=== PATIENT | male | born 1975 | race Caucasian/White ===

== ENCOUNTER → 2020-12-04 15:42 | Outpatient (BNVA) | payer OTHER, SELFPAY | PROVIDERS: PCP Hospitalist; Visit Provider Urology ==

== ENCOUNTER → 2021-11-04 09:06 | Outpatient (BNVA) | payer OTHER, SELFPAY | PROVIDERS: PCP Hospitalist; Visit Provider Urology | DX: N40.1 Benign prostatic hyperplasia with lower urinary tract symptoms (principal); R39.12 Poor urinary stream | CPT/HCPCS: 51798 ==

== ENCOUNTER → 2022-11-03 08:42 | Outpatient (BNVA) | payer OTHER, SELFPAY | PROVIDERS: PCP Hospitalist; Visit Provider Urology | DX: N40.1 Benign prostatic hyperplasia with lower urinary tract symptoms (principal) | CPT/HCPCS: 51798 ==

== ENCOUNTER 2023-11-02 08:36 | Outpatient (AMB) | payer OTHER, SELFPAY ==
--- NOTE | 2023-11-02 08:46 | A.OFFVIS_ITS ---
Intake Intake Visit Reasons: 1Y PVR Intake Note: Patient presents today for a yearly follow up on: BPH w LUTS and PVR Meds- Tamsulosin Allergies to Antibiotic- No Known Allergies Blood Thinner- None Post Void Residual: 82ml Patient Symptoms: Patient voided before bladder scan, and he stated he drinks a lot of fluids. Ethologist Required: No Accompanied by: Self / Same As Patient Allergies No Known Allergies Allergy (Verified 11/02/23 08:55) Medication List - Last Reconciled 11/02/23 by Brian Lewis MD atorvastatin 40 mg PO DAILY blood sugar diagnostic As directed hydrochlorothiazide 12.5 mg PO QAM hydroxyzine HCl 25 mg PO TID lisinopril 30 mg PO DAILY metformin 1,000 mg PO BID semaglutide (Ozempic) mg subcut tamsulosin 0.4 mg PO DAILY 90 days HPI HPI Comments History of Present Illness Details Ventura is a pleasant male. He is a patient of Dr. Duncan. He is seen with the following urologic conditions - lower urinary tract symptoms Continue good effect for medications Continue tamsulosin Discussed possible tadalafil. At this point he is stable. Discussed diabetic management - high density calorie restriction, carb restriction, timed restricted eating Yearly follow-up Lower urinary tract symptoms Prior diagnosis with trapped prostate Primary symptoms weakness of stream Background diabetes with metformin, hydrochlorothiazide, atorvastatin, Ozempic Does well on Flomax Prior discussion of potential for transurethral incision of prostate PSA 10/20 1.8 Prior history kidney stones [facility] Medical History Diabetes mellitus Hyperlipidemia HTN (hypertension) Benign non-nodular prostatic hyperplasia with lower urinary tract symptoms Surgical History History of surgery Review of Systems Const Denies chills and Denies fever(s) Card Reports no additional complaints and Denies syncope Resp Denies cough GI Denies abdominal pain and Denies heartburn Reports as per HPI and Denies change in libido Neuro Denies syncope Psych Denies change in libido Endo Denies change in libido Physical Exam Const General: cooperative, healthy appearing, comfortable and no acute distress Orientation/consciousness: patient oriented x3 HEENT Face and sinus: Yes normal facial exam Mouth: moist mucous membranes Neck Neck: Yes normal visual inspection, Yes full ROM and Yes trachea midline Chest Chest palpation & inspection: normal inspection of the chest Resp Effort & Inspection: normal respiratory effort, able to speak in complete sentences and no respiratory distress GI Inspection: Yes normal to inspection Back/Spine/Pelvis Cervical Spine: normal cervical lordosis Thoracic/Lumbar Spine: thoracic and lumbar spine normal to inspection Skin General skin exam: no rashes or lesions noted Neuro General: patient oriented x3, gait normal, tone normal and moves all extremities Extrem General: Yes normal to inspection and Yes capillary refill normal Office Procedures Post Void Residual Post Residual Void Post Void Residual (PVR): [id number] Void Residual by ultrasound Assessment & Plan Assessment & Plan (1) Benign non-nodular prostatic hyperplasia with lower urinary tract symptoms: Code(s): N40.1 - Benign prostatic hyperplasia with lower urinary tract symptoms Plan Continue tamsulosin Orders: Orders AMB Post Void Residual by ultrasound Today R33.9 - Retention of urine, unspecified Prostate Specific Antigen 364 Days N40.1 - Benign prostatic hyperplasia with lower urinary tract symptoms Medications: Refilled tamsulosin 0.4 mg PO DAILY 90 caps 3RF 90 days N40.1 - Benign prostatic hyperplasia with lower urinary tract symptoms Patient Instructions: Imaging studies, laboratory and physical exam results were discussed and reviewed in detail. No major barriers to patient understanding were identified. An opportunity to ask questions regarding the treatment plan was provided. All questions were answered. The patient expressed understanding and agreement with the above treatment plan. The patient is aware they should contact our office by phone for worsening of their current condition or the appearance of new urologic symptoms. Compliance is encouraged with any medications and followup testing that is ordered. It is a privilege to participate in the urologic care of your patient. If you have any questions or concerns regarding treatment for the above conditions, or other urologic issues, please do not hesitate to contact me. The office telephone contact is [phone]. This note is constructed using voice recognition software. While every effort has been made to ensure accuracy advertising assistant manager errors may have been included. Yours sincerely, Dr Brian Lewis MD, [facility] - Urology Providers of Expert, Compassionate Care for the Genitourinary System Coding Level of Care Code Est Pt Level 4 (36638) Diagnoses Benign non-nodular prostatic hyperplasia with lower urinary tract symptoms N40.1 CPT Codes Post Residual Void - PVR CPT Code: 72271-Tjol Void Residual by ultrasound ([id number])
== END 2023-11-02 09:29 | disposition home or self-care (01) ==
PROVIDERS: Visit Provider Urology
DX: N40.1 Benign prostatic hyperplasia with lower urinary tract symptoms (principal)
CPT/HCPCS: 99213

== ENCOUNTER → 2023-11-02 08:36 | Outpatient (BNVA) | payer OTHER, SELFPAY | PROVIDERS: Visit Provider Urology | DX: N40.1 Benign prostatic hyperplasia with lower urinary tract symptoms (principal); R33.8 Other retention of urine | CPT/HCPCS: 51798 ==

== ENCOUNTER 2024-11-01 08:27 | Outpatient (AMB) | payer OTHER, SELFPAY ==
--- NOTE | 2024-11-01 08:29 | A.OFFVIS_ITS ---
Intake Visit Reasons: 1y/PSA(set)[facility] Intake Note: Patient is present for 1y/psa Urology Medication:tamsulosin Antibiotic Allergy:none Blood Thinner:none Forklift Picker Required: No Allergies No Known Allergies Allergy (Verified 11/01/24 08:31) HPI Comments Details: Ventura is a pleasant male. He is a patient of Dr. Duncan. He is seen with the following urologic conditions - lower urinary tract symptoms Continue good effect for medications Doing well with tamsulosin Given diabetic background recently had testosterone proximally high 300s Recent published data would suggest trial of testosterone booster We will also switch to daily tadalafil Prescription will be provided Has repeat labs in three-month Discussed diabetic management - high density calorie restriction, carb restriction, timed restricted eating Yearly follow-up Lower urinary tract symptoms Prior diagnosis with trapped prostate Primary symptoms weakness of stream Background diabetes with metformin, hydrochlorothiazide, atorvastatin, Ozempic Does well on Flomax Prior discussion of potential for transurethral incision of prostate PSA 10/20 1.8, 10/22 2.2 Prior history kidney stones PFSH Medical History Diabetes mellitus Hyperlipidemia HTN (hypertension) Benign non-nodular prostatic hyperplasia with lower urinary tract symptoms Surgical History History of surgery Review of Systems Const Denies chills and Denies fever(s) Card Reports no additional complaints and Denies syncope Resp Denies cough GI Denies abdominal pain and Denies heartburn Reports as per HPI and Denies change in libido Neuro Denies syncope Psych Denies change in libido Endo Denies change in libido Physical Exam Const General: cooperative, healthy appearing, comfortable and no acute distress Orientation/consciousness: patient oriented x3 HEENT Face and sinus: Yes normal facial exam Mouth: moist mucous membranes Neck Neck: Yes normal visual inspection, Yes full ROM and Yes trachea midline Chest Chest palpation & inspection: normal inspection of the chest Resp Effort & Inspection: normal respiratory effort, able to speak in complete sentences and no respiratory distress GI Inspection: Yes normal to inspection Back/Spine/Pelvis Cervical Spine: normal cervical lordosis Thoracic/Lumbar Spine: thoracic and lumbar spine normal to inspection Skin General skin exam: no rashes or lesions noted Neuro General: patient oriented x3, gait normal, tone normal and moves all extremities Extrem General: Yes normal to inspection and Yes capillary refill normal Assessment & Plan Assessment & Plan (1) Benign non-nodular prostatic hyperplasia with lower urinary tract symptoms: Code(s): N40.1 - Benign prostatic hyperplasia with lower urinary tract symptoms Category: Medical (2) Erectile dysfunction: Code(s): N52.9 - Male erectile dysfunction, unspecified Category: Medical (3) Testosterone insufficiency: Code(s): E34.9 - Endocrine disorder, unspecified Category: Medical Plan Trial SERM Medications: New tadalafil BIN N Group [facility] DR33 [id number] 5 mg PO DAILY 90 days 90 tabs 0RF sexual activity N40.1 - Benign prostatic hyperplasia with lower urinary tract symptoms Patient Instructions: This note is constructed using voice recognition software. While every effort has been made to ensure accuracy scientist errors may have been included. Imaging studies, laboratory and physical exam results were discussed and reviewed in detail. No major barriers to patient understanding were identified. An opportunity to ask questions regarding the treatment plan was provided. All questions were answered. The patient expressed understanding and agreement with the above treatment plan. The patient is aware they should contact our office by phone for worsening of their current condition or the appearance of new urologic symptoms. Compliance is encouraged with any medications and followup testing that is ordered. It is a privilege to participate in the urologic care of your patient. If you have any questions or concerns regarding treatment for the above conditions, or other urologic issues, please do not hesitate to contact me. The office telephone contact is [phone]. Sincerely, Dr Brian Lewis MD, [facility] - Urology Compassionate Specialist Care for the Genitourinary System Coding Level of Care Code Est Pt Level 4 (61532) Diagnoses Benign non-nodular prostatic hyperplasia with lower urinary tract symptoms N40.1 Erectile dysfunction N52.9 Testosterone insufficiency E34.9
--- OUTSIDE RECORDS SUMMARY | 2024-11-01 08:49 | XMS_ITS ---
Author Organization [facility] Address [address] [place] [id number] Care Team Providers Care Hogshead Mat Assembler Name Role Phone MARANDA ALMANZAR Primary Care Provider Allergies No Known Allergies REASON FOR VISIT 6 month f/u Medications Medication SIG (Take, Route, Frequency, Duration) Notes Start Date End Date Status Atorvastatin Calcium 40 MG TAKE 1 TABLET BY MOUTH EVERY DAY for 90 Active hydrOXYzine HCl 25 MG TAKE 1 TABLET BY M OUTH EVERY 8 HOURS NEEDED for 30 Active hydroCHLOROthiazide 12.5 MG TAKE 1 TABLE T BY MOUTH EVERY DAY IN THE MORNING for 90 Active FreeStyle Lite Test - DIRECTED TO MELISSA CK BLOOD SUGARS DX: E11.9 ONCE DAILY IN VITRO 30 DAYS Active FreeStyle Lancets - as directed to check blood sugars with freestyle lite device Dx: E11.9 in vitro once daily for 30 days 01/09/2020 Active Tamsulosin HCl 0.4 MG 1 capsule Orally O nce a day for 30 day(s) Active Cialis 10 MG 1 tablet as needed Orally Once a day for 30 day(s) Active Ozempic (0.25 or 0.5 MG/DOSE ) 2 MG/1.5ML 1 mg Subcutaneous once a week for 30 days 11/04/2022 Active FreeStyle Lite - as directed to check blood sugars Dx: E11.9 in vitro once daily for 30 days 01/09/2020 Active Ozempic (0.25 or 0.5 MG/DOSE ) 2 MG/3ML INJECT 0.5 MG SUBCUTANEOUSLY ONCE A WEEK for 56 Active Lisinopril 30 MG TAKE 1 TABLET BY GERALD TH EVERY DAY for 90 Active metFORMIN HCl 1000 MG TAKE 1 TABLET BY M OUTH TWICE A DAY WITH MEALS 90 DAYS for 90 Active Social History Tobacco Use: Social History Observation Description Date Details (start date - stop date) Never Smoker NA - NA Tobacco Use/Smoking Question Answer Notes Are you a nonsmoker Alcohol Screen (Audit-C) Question Answer Notes Did you have a drink containing alcohol in the p ast year? No Points 0 Interpretation Negative Section Notes: Alcohol Ocassionally Problems Problem Type SNOMED Code ICD Code Onset Dates Problem Status W/U Status Risk Notes Problem Obesity due to excess calories (869308644) Other obesity due to excess calories (E66.09) Active confirmed Vital Signs Temperature 98.7 degrees Fahrenheit 07/04/20 24 Oximetry 98 % 07/04/2024 Heart Rate 96 /min 07/04/2024 Blood pressure systolic 138 mm Hg 07/04/20 24 Blood pressure diastolic 80 mm Hg 024 Weight 210.0 lbs 07/04/2024 BMI 30.57 kg/m2 07/04/2024 Height 69.49 in 07/04/2024 Encounters Encounter Location Date Provider Diagnosis [facility] [address] [id number] 07/04/2024 MARANDA ALMANZAR Type 2 diabetes mellitus with unspecified complications E11.8 ; Essential (primary) hypertension I10 ; Hyperlipidemia, unspecified E78.5 ; Benign prostatic hyperplasia without lower urinary tract symptoms N40.0 ; Decreased libido R68.82 ; Other obesity due to excess calories E66.09 and Dietary counseling and surveillance Z71.3 Assessments Encounter Date Diagnosis (ICD Code) Assessment Notes Treatment Notes Treatment Clinical Notes Section Notes 07/04/2024 Type 2 diabetes mellitus with unspecified complications (ICD-10 - E11.8) Ventura 48 years old pleasant gentleman with DM type II, hypertension, hyperlipidemia, BPH, erectile dysfunction and he also complained of decreased libido. Plan is as follows. DM type II. A1c 6.3 but fasting blood sugars are 166. Advised not to eat late at night and this can be Charity phenomenon. We will increase his Ozempic to 1 mg every weekly and continue rest of the medications. 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 He is physically active and foot care discussed. Hypertension/hyper lipidemia. Blood pressure on repeat well controlled. Low-sodium diet recommended. Continue atorvastatin 40 mg daily and repeat lipid panel before next appointment .Erectile dysfunction and decreased libido. Continue Cialis and we will check testosterone levels and will proceed from there. class I obesity. Dietary restrictions discussed with the patient and was advised to lose 6 pounds a month. Increasing the dose of GLP 1 will also help with weight loss. Screening blood work ordered 07/04/2024 Essential (primary) hypertension (ICD-10 - I10) Ventura 48 years old pleasant gentleman with DM type II, hypertension, hyperlipidemia, BPH, erectile dysfunction and he also complained of decreased libido. Plan is as follows. DM type II. A1c 6.3 but fasting blood sugars are 166. Advised not to eat late at night and this can be Charity phenomenon. We will increase his Ozempic to 1 mg every weekly and continue rest of the medications. 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 He is physically active and foot care discussed. Hypertension/hyper lipidemia. Blood pressure on repeat well controlled. Low-sodium diet recommended. Continue atorvastatin 40 mg daily and repeat lipid panel before next appointment .Erectile dysfunction and decreased libido. Continue Cialis and we will check testosterone levels and will proceed from there. class I obesity. Dietary restrictions discussed with the patient and was advised to lose 6 pounds a month. Increasing the dose of GLP 1 will also help with weight loss. Screening blood work ordered 07/04/2024 Hyperlipidemia, unspecified (ICD-10 - E78.5) Ventura 48 years old bala gentleman with DM type II, hypertension, hyperlipidemia, BPH, erectile dysfunction and he also complained of decreased libido. Plan is as follows. DM type II. A1c 6.3 but fasting blood sugars are 166. Advised not to eat late at night and this can be Charity phenomenon. We will increase his Ozempic to 1 mg every weekly and continue rest of the medications. 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 He is physically active and foot care discussed. Hypertension/hyper lipidemia. Blood pressure on repeat well controlled. Low-sodium diet recommended. Continue atorvastatin 40 mg daily and repeat lipid panel before next appointment .Erectile dysfunction and decreased libido. Continue Cialis and we will check testosterone levels and will proceed from there. class I obesity. Dietary restrictions discussed with the patient and was advised to lose 6 pounds a month. Increasing the dose of GLP 1 will also help with weight loss. Screening blood work ordered 07/04/2024 Benign prostatic hyperplasia without lower urinary tract symptoms (ICD-10 - N40.0) Ventura 48 years old pleasant gentleman with DM type II, hypertension, hyperlipidemia, BPH, erectile dysfunction and he also complained of decreased libido. Plan is as follows. DM type II. A1c 6.3 but fasting blood sugars are 166. Advised not to eat late at night and this can be Charity phenomenon. We will increase his Ozempic to 1 mg every weekly and continue rest of the medications. 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 He is physically active and foot care discussed. Hypertension/hyper lipidemia. Blood pressure on repeat well controlled. Low-sodium diet recommended. Continue atorvastatin 40 mg daily and repeat lipid panel before next appointment .Erectile dysfunction and decreased libido. Continue Cialis and we will check testosterone levels and will proceed from there. class I obesity. Dietary restrictions discussed with the patient and was advised to lose 6 pounds a month. Increasing the dose of GLP 1 will also help with weight loss. Screening blood work ordered 07/04/2024 Decreased libido (ICD-10 - R68.82) Ventura 48 years old bala gentleman with DM type II, hypertension, hyperlipidemia, BPH, erectile dysfunction and he also complained of decreased libido. Plan is as follows. DM type II. A1c 6.3 but fasting blood sugars are 166. Advised not to eat late at night and this can be Charity phenomenon. We will increase his Ozempic to 1 mg every weekly and continue rest of the medications. 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 He is physically active and foot care discussed. Hypertension/hyper lipidemia. Blood pressure on repeat well controlled. Low-sodium diet recommended. Continue atorvastatin 40 mg daily and repeat lipid panel before next appointment .Erectile dysfunction and decreased libido. Continue Cialis and we will check testosterone levels and will proceed from there. class I obesity. Dietary restrictions discussed with the patient and was advised to lose 6 pounds a month. Increasing the dose of GLP 1 will also help with weight loss. Screening blood work ordered 07/04/2024 Other obesity due to excess calories (ICD-10 - E66.09) Ventura 48 years old bala gentleman with DM type II, hypertension, hyperlipidemia, BPH, erectile dysfunction and he also complained of decreased libido. Plan is as follows. DM type II. A1c 6.3 but fasting blood sugars are 166. Advised not to eat late at night and this can be Charity phenomenon. We will increase his Ozempic to 1 mg every weekly and continue rest of the medications. 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 He is physically active and foot care discussed. Hypertension/hyper lipidemia. Blood pressure on repeat well controlled. Low-sodium diet recommended. Continue atorvastatin 40 mg daily and repeat lipid panel before next appointment .Erectile dysfunction and decreased libido. Continue Cialis and we will check testosterone levels and will proceed from there. class I obesity. Dietary restrictions discussed with the patient and was advised to lose 6 pounds a month. Increasing the dose of GLP 1 will also help with weight loss. Screening blood work ordered 07/04/2024 Dietary counseling and surveillance (ICD-10 - Z71.3) Ventura 48 years old pleasant gentleman with DM type II, hypertension, hyperlipidemia, BPH, erectile dysfunction and he also complained of decreased libido. Plan is as follows. DM type II. A1c 6.3 but fasting blood sugars are 166. Advised not to eat late at night and this can be Charity phenomenon. We will increase his Ozempic to 1 mg every weekly and continue rest of the medications. 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 He is physically active and foot care discussed. Hypertension/hyper lipidemia. Blood pressure on repeat well controlled. Low-sodium diet recommended. Continue atorvastatin 40 mg daily and repeat lipid panel before next appointment .Erectile dysfunction and decreased libido. Continue Cialis and we will check testosterone levels and will proceed from there. class I obesity. Dietary restrictions discussed with the patient and was advised to lose 6 pounds a month. Increasing the dose of GLP 1 will also help with weight loss. Screening blood work ordered Plan Of Treatment Medication Medication Name Sig Start Date Stop Date Notes Ozempic (0.25 or 0.5 MG/DOSE) 2 MG/1.5ML 1 mg Subcutaneous once a week for 30 days 11/04/2022 Future Test Test Name Order Date Hemoglobin D0s-[id number] 07/04/2024 Testosterone, Free+Total LC/MS-[id number] Albumin/Creatinine Ratio,Urine-[id number] Lipid Panel-[id number] 07/04/2024 Comp. Metabolic Panel [id number] PSA (Serial Monitor)-[id number] 07/04/2024 Next Appt Details Follow Up: 6 Months, Reason: Provider Name:MARANDA ALMANZAR , 12/05/2024 10:00:00 AM, [address] [place] [address], [place], [phone], Progress Notes * Ventura LOWEDOB: [birth year] (48 yo M)Acc No.[id number]:07/04/2024 Progress Notes Patient:?Ventura LOWE Provider:?MARANDA ALMANZAR MD :[id number]???Age:48 Y???Sex:Male Juanito e:07/04/2024 Address:[address] [place], [place] [id number] Subjective: * Chief Complaints: * ???6 month f/u * HPI: ???Internal Medicine:?Mr. Lowe is a 47 year old gentleman with DM type II, hypertension, hyperlipidemia, BPH, CKD and white coat hypertension here for follow-up. His hemoglobin A1c is 6.6 which went up and fasting blood sugars 166. Vision and hearing are stable. He checks his blood sugars and blood pressure at home which are pretty much within normal limits. He is physically active and exercising regularly. He lost 22 lbs since last visit. He does not appear anxious or depressed. He sleeps well, appetite is good. No GI or symptoms. He denies any other active issues or concerns. * ROS:?General/Constitutional:?Overall health?Good.?Change in appetite?denies.?Chills?denies.?Fever?denies.?Night sweats?denies.?Sleep disturbance?denies.?Weight gain?denies.?Weight loss?admits, 22?pounds.?Neurologic:?Difficulty speaking?denies.?Dizziness?denies.?Gait abnormality?denies.?Headache?denies.?Loss of strength?denies.?Memory loss?denies.?Seizures?denies.?Tingling/Numbness?denies .?Ophthalmologic:?Blurred vision?denies.?Discharge?denies.?Dry eye?denies.?Red eye?denies.?ENT:?Change in Voice?Denies.?Cold Symptoms?Denies.?Cough?Denies.?Dizziness?Denies.?Nasal Congestion?Denies.?Otalgia?Denies.?postnasal drip?Denies.?Blocked ear?denies.?Nosebleed?denies.?Snoring?denies.?Cardiovascular:?Diaphoresis?Denies.?Pedal Edema?Denies.?PND (Paroxsymal nocturnal dyspnea)?Denies.?Chest pain?denies.?Difficulty laying flat?denies.?Dyspnea on exertion?denies.?Heart murmur?denies.?Orthopnea?denies.?Respiratory:?Snoring?denies.?Asthma?denies.?Cough?denies.?Shortness of breath with exertion?denies.?Sputum production?denies.?Wheezing?denies.?Gastrointestinal:?Change in bowel habits?denies.?Constipation?denies.?Decreased appetite?denies.?Diarrhea?denies.?Heartburn?denies.?Nausea?denies.?Vomiting?simone es.?Musculoskeletal:?tingling/numbness?Denies.?myalgias?Denies.?Joint Swelling?Denies.?extremeties?normal.?Patient complaining of?pain in shoulder.?Arthritis?denies.?Back problems?admits.?Carpal tunnel?denies.?Joint stiffness?denies.?Muscle aches?denies.?Endocrine:?Bowel Changes?Denies.?Breast Discharge?Denies.?poor libido?Denies.?Cold intolerance?denies.?Excessive sweating?denies.?Excessive thirst?denies.?Frequent urination?denies.?Thyroid problems?denies.?Skin:?Bruising?Denies.?Eczema?denies.?Hair changes?denies.?Rash?denies.?Skin lesion(s)?denies.?Psychiatric:?Anxiety?denies.?Depressed mood?denies.?Difficulty sleeping?denies.?Nervous breakdown?denies.?Substance abuse?denies.?Urology:?abnormal menstrual bleeding?denies.?blood in urine?denies.?burning on urination?denies.?difficulty urinating?denies.?discharge?denies.?dysuria?denies.? * Medical History:? * Surgical History:?kidney sto natalie * Hospitalization/Major Diagno stic Procedure:? * Family History:?Father: elisa yu.?Mother: .?1 brother(s) . .? * Social History:?Tobacco Use:?Tobacco Use/Smoking?Are you a?nonsmoker ???Drugs/Alcohol:?Drugs?Have you used drugs other than those for medical reasons in the past 12 months??No ?Alcohol Screen (Audit-C)?Did you have a drink containing alcohol in the past year??No ?Points?0 ?Interpretation?Negative ???Miscellaneous:?Exercise: Started exercising. ?Living with: alone. ?Marital status: . ?Occupation: Works full-time. ???Alcohol Ocassionally. * Medications:?TakingTamsulosi n HCl 0.4 MG Capsule 1 capsule Orally Once a day FreeStyle Lite - Device as directed to check blood sugars Dx: E11.9 in vitro once daily FreeStyle Lancets - Miscellaneous as directed to check blood sugars with freestyle lite device Dx: E11.9 in vitro once daily FreeStyle Lite Test - Strip DIRECTED TO CHECK BLOOD SUGARS DX: E11.9 ONCE DAILY IN VITRO 30 DAYS Ozempic (0.25 or 0.5 MG/DOSE) 2 MG/1.5ML Solution Pen-injector 0.25 mg Subcutaneous once a week hydroCHLOROthiazide 12.5 MG Tablet TAKE 1 TABLET BY MOUTH EVERY DAY IN THE MORNING hydrOXYzine HCl 25 MG Tablet TAKE 1 TABLET BY MOUTH EVERY 8 HOURS NEEDED Atorvastatin Calcium 40 MG Tablet TAKE 1 TABLET BY MOUTH EVERY DAY metFORMIN HCl 1000 MG Tablet TAKE 1 TABLET BY MOUTH TWICE A DAY WITH MEALS 90 DAYS Lisinopril 30 MG Tablet TAKE 1 TABLET BY MOUTH EVERY DAY Cialis 10 MG Tablet 1 tablet as needed Orally Once a day Ozempic (0.25 or 0.5 MG/DOSE) 2 MG/3ML Solution Pen-injector INJECT 0.5 MG SUBCUTANEOUSLY ONCE A WEEK Medication List reviewed and reconciled with the patientTaking Tamsulosin HCl 0.4 MG Capsule 1 capsule Orally Once a day Taking FreeStyle Lite - Device as directed to check blood sugars Dx: E11.9 in vitro once daily Taking FreeStyle Lancets - Miscellaneous as directed to check blood sugars with freestyle lite device Dx: E11.9 in vitro once daily Taking FreeStyle Lite Test - Strip DIRECTED TO CHECK BLOOD SUGARS DX: E11.9 ONCE DAILY IN VITRO 30 DAYS Taking Ozempic (0.25 or 0.5 MG/DOSE) 2 MG/1.5ML Solution Pen-injector 0.25 mg Subcutaneous once a week Taking hydroCHLOROthiazide 12.5 MG Tablet TAKE 1 TABLET BY MOUTH EVERY DAY IN THE MORNING Taking hydrOXYzine HCl 25 MG Tablet TAKE 1 TABLET BY MOUTH EVERY 8 HOURS NEEDED Taking Atorvastatin Calcium 40 MG Tablet TAKE 1 TABLET BY MOUTH EVERY DAY Taking metFORMIN HCl 1000 MG Tablet TAKE 1 TABLET BY MOUTH TWICE A DAY WITH MEALS 90 DAYS Taking Lisinopril 30 MG Tablet TAKE 1 TABLET BY MOUTH EVERY DAY Taking Cialis 10 MG Tablet 1 tablet as needed Orally Once a day Taking Ozempic (0.25 or 0.5 MG/DOSE) 2 MG/3ML Solution Pen-injector INJECT 0.5 MG SUBCUTANEOUSLY ONCE A WEEK Medication List reviewed and reconciled with the patient * Allergies:?N.K.D.A.no[Allerg ies Verified] Objective: * Vitals:?Temp:98.7F, Oxygen s at %:98%, HR:96/min, BP: 156/82 mm Hg,138/80mm Hg, Wt:210.0lbs, BMI:30.57Index, Ht: 69.49 in. * ???Past Orders: Lab:Hemoglobin [id number] * Collection Date 06/29/2024 01/05/2024 Collection Time 07:09 AM 06:10 AM Order Date 06/04/2024 01/05/2024 Hemoglobin A1c/ Hemoglobin total 6.6? H (Ref Range: 4.8-5.6 %) 6.3?H (Ref Range: 4.8-5.6 %) ???Lab:Basic Metabolic Panel ([id number] (Order Date - 06/04/2024) (Collection Date & Time - 06/29/2024 07:09 AM)?ValueReference Range?[id number] H70-99 - mg/dL?WZL697-50 - mg/dL?Creatinine1.160.76-1.27 - mg/dL ?BUN/Creatinine Gneit239-06 -?[id number] - mmol/L ?Potassium4.83.5-5.2 - mmol/L?Fmwdwcjj42857-023 - mmol/L ?Carbon Dioxide, Vbbtq9572-06 - mmol/L?Calcium9.68.7-10.2 - mg/dL ?eGFR77>59 - mL/min/1.73 ???Lab:Glucose-[id number] (Order Date - 01/05/2024) (Collection Date & Time - 01/05/2024 06:10 AM)?ValueReference Range?[id number] - mg/dL * Examination: ???General Examination: ?Psychiatry?Normal.?GENERAL APPEARANCE:?Well developed, well nourished, in no acute distress.?MUSCULOSKELETAL:?Normal.?HEAD:?Normocephalic, atraumatic.?EYES:?Pupils equal, round, reactive to light and accommodation, sclera non-icteric.?EARS:?Normal.?ORAL CAVITY:?Normal.?THROAT:?Clear.?OROPHARYNX?Normal.?SINUSES?Normal.?NECK/THYROID:?Neck supple, full range of motion, no cervical lymphadenopathy.?SKIN:?Warm and dry, no suspicious lesions.?HEART:?S1, S2 normal regular rate and rhythm no murmurs, rubs, gallops .?LUNGS:?Normal clear anteriorly and posteriorly no wheezes, rales, rhonchi good air movement .?ABDOMEN:?Soft, nontender, nondistended, bowel sounds present, normal.?EXTREMITIES:?Normal.?PERIPHERAL PULSES:?Normal.?NEUROLOGIC:?Nonfocal, appropriate motor strength normal upper and lower extremities, sensory exam intact.?MALE GENITOURINARY:?no hernia, no hydrocele, no penile lesions or discharge, no testicular mass, prostate very mildly enlarged.?PODIATRIC:?Normal.?Transformer Builder? .? Assessment: * Assessment: 1.?Type 2 diabetes mellitus with unspecified complications - E11.8 (Primary)???2.?Essential (primary) hypertension - I10???3.?Hyperlipidemia, unspecified - E78.5???4.?Benign prostatic hyperplasia without lower urinary tract symptoms - N40.0???5.?Decreased libido - R68.82???6.?Other obesity due to excess calories - E66.09???7.?Dietary counseling and surveillance - Z71.3??? Ventura 48 years old pleasan t gentleman with DM type II, hypertension, hyperlipidemia, BPH, erectile dysfunction and he also complained of decreased libido.? Plan is as follows. DM type II.? A1c 6.3 but fasting blood sugars are 166.? Advised not to eat late at night and this can be Charity phenomenon.? We will increase his Ozempic to 1 mg every weekly and continue rest of the medications.? 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 He is physically active and foot care discussed. Hypertension/hyperlipidemia.? Blood pressure on repeat well controlled.? Low- sodium diet recommended.? Continue atorvastatin 40 mg daily and repeat lipid panel before next appointment .Erectile dysfunction and decreased libido.? Continue Cialis and we will check testosterone levels and will proceed from there. class I obesity.? Dietary restrictions discussed with the patient and was advised to lose 6 pounds a month.? Increasing the dose of GLP 1 will also help with weight loss. Screening blood work ordered Plan: * Treatment: 2.?Benign prostatic hyperpla geoff without lower urinary tract symptoms?LAB: PSA (Serial Monitor)-[id number] (Ordered for 07/04/2024) 3.?Decreased libido?LAB: Testosterone, Free+Total LC/MS-[id number] (Ordered for 07/04/2024) 4.?Others? Refill Ozempic (0.25 or 0.5 MG/DOSE) Solution Pen-injector, 2 MG/1.5ML, 1 mg, Subcutaneous, once a week, 30 days, 6 ml, Refills 6.?? * Procedure Codes:?3075F SYST BP GE 130 - 139MM [id number] DIAST BP 80-89 MM [id number] SYST BP = 140 MM HG6 IT * Follow Up:?6 Months * * Sign off status: Completed true * Provider:?MARANDA ALMANZAR MD Date:?07/04 Generated for Sun johnson/Rocco/eTkeelysmitting on:?11/01/2024 08:48 AM EDT History and Physical Notes * HPI (History of Present Illness) Category Sub-Category Detail Notes Category Not es Internal Medicine Mr. Hattie narvaez is a 47 year old gentleman with DM type II, hypertension, hyperlipidemia, BPH, CKD and white coat hypertension here for follow-up. His hemoglobin A1c is 6.6 which went up and fasting blood sugars 166. Vision and hearing are stable. He checks his blood sugars and blood pressure at home which are pretty much within normal limits. He is physically active and exercising regularly. He lost 22 lbs since last visit. He does not appear anxious or depressed. He sleeps well, appetite is good. No GI or symptoms. He denies any other active issues or concerns. Examination Category Sub-Category Detail Notes Category Not es General Examination GENERAL APPEARANCE: Well dev eloped, well nourished, in no acute distress HEAD: Normocephalic, atrau matic EYES: Pupils equal, round, reactive to light and accommodation, sclera non-icteric EARS: Normal THROAT: Clear NECK/THYROID: Neck supple, full ra nge of motion, no cervical lymphadenopathy HEART: S1, S2 normal regula r rate and rhythm no murmurs, rubs, gallops LUNGS: Normal clear anterio rly and posteriorly no wheezes, rales, rhonchi good air movement ABDOMEN: Soft, nontender, non distended, bowel sounds present, normal NEUROLOGIC: Nonfocal, appropriat e motor strength normal upper and lower extremities, sensory exam intact SKIN: Warm and dry, no miguel picious lesions EXTREMITIES: Normal PERIPHERAL PULSES: Normal MUSCULOSKELETAL: Normal MALE GENITOURINARY: no hernia, no hydroc roger, no penile lesions or discharge, no testicular mass, prostate very mildly enlarged ORAL CAVITY: Normal PODIATRIC: Normal Psychiatry Normal OROPHARYNX Normal SINUSES Normal Transformer Builder
--- OUTSIDE RECORDS SUMMARY | 2024-11-01 08:49 | XMS_ITS | Patient Health Record ---
Author Organization [facility] Address [address] [place] [address] [address] [place] [address] Care Team Providers Care [place] Superintendent Name Role Phone MARANDA ALMANZAR Primary Care Provider Allergies No Known Allergies Results Component Value Reference Range Notes Basic Metabolic Panel ([id number] Reviewed date:06/30/2024 09:43:02 AM Interpretation: Performing Lab:[facility], [address] [place] [address], Phone - [phone], Director - Kim Notes/Report: Glucose 166 70-99 mg/dL BUN 18 6-24 mg/dL Creatinine 1.16 0.76-1.27 mg/dL eGFR 77 >59 mL/min/1.73 BUN/Creatinine Ratio 16 9-20 Sodium 138 134-144 mmol/L Potassium 4.8 3.5-5.2 mmol/L Chloride 100 96-106 mmol/L Carbon Dioxide, Total 24 20-29 mmol/L Calcium 9.6 8.7-10.2 mg/dL Hemoglobin [id number] Reviewed date:06/30/2024 09:42:53 AM Interpretation: Performing Lab:[facility], [address] [facility], Phone - [phone], Director - Kim Notes/Report: Hemoglobin A1c 6.6 4.8-5.6 % . Prediabetes: 5.7 - 6.4 Diabetes: >6.4 Glycemic control for adults with diabetes: <7.0 Testosterone, Total, LC/MS-0 [id number] Reviewed date:01/12/2024 07:53:54 AM Interpretation: Performing Lab:[facility], [address] [place] [address], Phone - [phone], Director - Eladio Notes/Report: Testosterone, Total, LC/MS 400 This test was developed and its performance characteristics determined by [facility]. It has not been cleared or approved by the Food and Drug Administration. Reference Range: Adult Males >18 years 264 - 916 This [facility] LC/MS-MS method is currently certified by the CDC Hormone Standardization Program (HoST). Adult male reference interval is based on a population of healthy nonobese males (BMI <30) between 19 and 39 years old. Girma et.al. JCEM 2017,102;3729-2411 PMID: [id number]. Chiquita Girard LP Default Reviewed date:01/07/2024 09:12:58 AM Interpretation: Performing Lab:[facility] [address] [place] [address], [place], Phone - [phone], Director Bibi Alvarez Notes/Report: Chiquita Girard LP Default A hand-written panel/profile was received from your office. In accordance with the [facility] Ambiguous Test Code Policy dated January 2003, we have completed your order by using the closest currently or formerly recognized AMA panel. We have assigned Lipid Panel, Test Code #343155 to this request. If this is not the testing you wished to receive on this specimen, please contact the [facility] Client Inquiry/Technical Services Department to clarify the test order. We appreciate your business. Lipid Panel-[id number] Reviewed date:01/07/2024 09:14:43 AM Interpretation: Performing Lab:[facility] [address] [place] [address], [place], Phone - [phone], Director Bibi Alvarez Notes/Report: Cholesterol, Total 118 100-199 mg/dL Triglycerides 81 0-149 mg/dL HDL Cholesterol 38 >39 mg/dL VLDL Cholesterol Tushar 16 5-40 mg/dL LDL Chol Calc (NIH) 64 0-99 mg/dL Hemoglobin [id number] Reviewed date:01/07/2024 09:14:52 AM Interpretation: Performing Lab:[facility] [place], [place], Phone - [phone], Director Bibi Alvarez Notes/Report: Hemoglobin A1c 6.3 4.8-5.6 % . Prediabetes: 5.7 - 6.4 Diabetes: >6.4 Glycemic control for adults with diabetes: <7.0 Glucose-[id number] Reviewed date:01/07/2024 09:14:49 AM Interpretation: Performing Lab:[facility], [address], [place], Phone - [phone], Director - Kim Notes/Report: Glucose 134 70-99 mg/dL Reason For Referral No Information Medications Medication SIG (Take, Route, Frequency, Duration) Notes Start Date End Date Status hydroCHLOROthiazide 12.5 MG 1 capsule in the morning Orally Once a day for 90 days Active Ozempic (1 MG/DOSE) 4 MG/3ML INJECT 1 MG SUBCUTANEOUS ONCE WEEKLY 30 DAYS for 30 Active Cialis 10 MG 1 tablet Orally Once a day for 30 days Active metFORMIN HCl 1000 MG TAKE 1 TABLET BY M OUTH TWICE A DAY WITH MEALS 90 DAYS for 90 Active FreeStyle Lite Test - DIRECTED TO MELISSA CK BLOOD SUGARS DX: E11.9 ONCE DAILY IN VITRO 30 DAYS Active Ozempic (0.25 or 0.5 MG/DOSE ) 2 MG/1.5ML 1 mg Subcutaneous once a week for 30 days 11/04/2022 Active FreeStyle Lancets - as directed to check blood sugars with freestyle lite device Dx: E11.9 in vitro once daily for 30 days 01/09/2020 Active FreeStyle Lite - as directed to check blood sugars Dx: E11.9 in vitro once daily for 30 days 01/09/2020 Active Ozempic (0.25 or 0.5 MG/DOSE ) 2 MG/3ML INJECT 0.5 MG SUBCUTANEOUSLY ONCE A WEEK for 56 Active Tamsulosin HCl 0.4 MG 1 capsule Orally O nce a day for 30 day(s) Active Lisinopril 30 MG TAKE 1 TABLET BY GERALD TH EVERY DAY for 90 Active Atorvastatin Calcium 40 MG TAKE 1 TABLET BY MOUTH EVERY DAY for 90 Active hydrOXYzine HCl 25 MG 1 tablet Orally ev yung 8 hrs for 30 days Active Immunizations Vaccine Route Administration Date Status Comme nts COVID Moderna Unknown 10/16/2020 Administered COVID Moderna Unknown 11/13/2020 Administered COVID Moderna Unknown 11/03/2021 Administered COVID-19 Moderna Unknown 06/08/2022 Administered Influenza, high dose seasonal IM Intramuscular 04/17/2020 Administered Td (adult), absorbed Unknown 02/28/2020 Administered Social History Tobacco Use: Social History Observation Description Date Details (start date - stop date) Never Smoker NA - NA Tobacco Use/Smoking Question Answer Notes Are you a nonsmoker Alcohol Screen (Audit-C) Question Answer Notes Did you have a drink containing alcohol in the p ast year? No Points 0 Interpretation Negative Section Notes: Alcohol Ocassionally Alcohol Ocassionally Alcohol Ocassionally Alcohol Ocassionally Alcohol Ocassionally Alcohol Ocassionally Alcohol Ocassionally Alcohol Ocassionally Problems Problem Type SNOMED Code ICD Code Onset Dates Problem Status W/U Status Risk Notes Problem Disorder due to type 2 diabetes mellitus (409110731) Type 2 diabetes mellitus with unspecified complications (E11.8) Active confirmed Problem Type II diabetes mellitus without complication (328901936) Type 2 diabetes mellitus without complications (E11.9) Active confirmed Problem Obesity due to excess calories (815882155) Other obesity due to excess calories (E66.09) Active confirmed Problem Anxiety disorder (840741340) Anxiety disorder, unspecified (F41.9) Active confirmed Problem Fatty liver (174356889) Fatty (change of) liver, not elsewhere classified (K76.0) Active confirmed Problem Chronic kidney disease (364326383) Chronic kidney disease, unspecified (N18.9) Active confirmed Problem Erectile dysfunction (disorder) (801300466) Male erectile dysfunction, unspecified (N52.9) Active confirmed Problem Adult health examination (584904509) Encounter for general adult medical examination without abnormal findings (Z00.00) Active confirmed Problem Hyperlipidemia (76551583) Hyperlipidemia, unspecified (E78.5) Active confirmed Problem Essential hypertension (76499233) Essential (primary) hypertension (I10) Active confirmed Problem Benign prostatic hypertrophy without outflow obstruction (794484123) Benign prostatic hyperplasia without lower urinary tract symptoms (N40.0) Active confirmed Vital Signs Heart Rate 96 /min 07/04/2024 Temperature 98.7 degrees Fahrenheit 07/04/2024 Blood pressure diastolic 80 mm Hg 07/04/2024 Oximetry 98 % 07/04/2024 Height 69.49 in 07/04/2024 Blood pressure systolic 138 mm Hg 07/04/2024 Weight 210.0 lbs 07/04/2024 BMI 30.57 kg/m2 07/04/2024 Encounters Encounter Location Date Provider Diagnosis [facility] [address] [address] 12/04/2023 MARANDA ALMANZAR Type 2 diabetes anirudh itus with unspecified complications E11.8 ; Encounter for general adult medical examination without abnormal findings Z00.00 ; Essential (primary) hypertension I10 ; Hyperlipidemia, unspecified E78.5 ; Anxiety disorder, unspecified F41.9 and Benign prostatic hyperplasia without lower urinary tract symptoms N40.[address] [place] [address] 07/04/2024 MARANDA ALMANZAR Type 2 diabetes anirudh itus with unspecified complications E11.8 ; Essential (primary) hypertension I10 ; Hyperlipidemia, unspecified E78.5 ; Benign prostatic hyperplasia without lower urinary tract symptoms N40.0 ; Decreased libido R68.82 ; Other obesity due to excess calories E66.09 and Dietary counseling and surveillance Z71.[address] [place] [address] 12/05/2023 MARANDA ALMANZAR Encounter for genera l adult medical examination without abnormal findings Z00.[address] [place] [address] 02/23/[address] [place] [address] 04/11/2024 MARANDA ALMANZAR Male erectile dysfunction, unspecified N52.[address] [place] [address] 04/17/2024 MARANDA ROBB Male erectile dysfunction, unspecified N52.[address] [place] [address] 04/24/[address] [place] [address] 04/24/[address] [place] [address] 06/03/[address] [place] [address] 06/04/2024 MARANDA ALMANZAR Type 2 diabetes anirudh itus without complications E11.9 and Essential (primary) hypertension I10 [facility] [address] [facility] [address] [place] [address] 07/09/2024 MARANDA ALMANZAR Assessments Encounter Date Diagnosis (ICD Code) Assessment Notes Treatment Notes Treatment Clinical Notes Section Notes 12/04/2023 Type 2 diabetes mellitus with unspecified complications (ICD-10 - E11.8) Mr. Lowe is a 47 year old gentleman with DM type II, hypertension, hyperlipidemia, BPH, CKD and white coat hypertension here for annual physical. Plan is as follows: Type II diabetes mellitus. Last A1c 6.6. He is on metformin 1000 MG twice a day. He will benefit from injectables at this point and prescription sent for Ozempic. He has seen his service observer in the past 1 year. Foot care discussed. Check A1c. EKG is NSR @ [address] or T wave changes, no BBB and normal intervals Hypertension. Blood pressure reasonably controlled. He has whitecoat hypertension and home BP within normal limits. Increase cardio exercises. Continue current regimen. Hyperlipidemia. Last lipid panel within normal limits. Continue on Atorvastatin 40 MG at night. Anxiety disorder. Mood stable on hydroxyzine 25 MG as needed. BPH. Stable on current regimen and he sees Dr. Camara. Class 1 obesity. He will start on Ozempic which also helps with weight loss. Advised dietary restrictions and regimental exercise. Goal is to lose 5-6 lbs a month. Eye screening. He sees his service observer regularly. Dental screening. He sees dentist regularly. Skin cancer screening. No skin issues at this point. Colon cancer screening. He had a cologuard last year which is good for 3 years. Immunizations. He is up-to-date on his COVID-19 vaccinations. Blood work reviewed with patient and questions answered. Screening blood work before next appointment. General health concerns discussed with patient. Scribe services used to formulate this note under HIPAA compliance and under [place] law mandated for scribe services. Patient aware of service. Verbal consent and written consent taken from the patient. Patient understands and verbalizes understanding of the scribes services and all questions answered regarding scribes services. Patient agrees to use of scribes services. 12/04/2023 Encounter for general adult medical examination without abnormal findings (ICD-10 - Z00.00) Mr. Lowe is a 47 year old gentleman with DM type II, hypertension, hyperlipidemia, BPH, CKD and white coat hypertension here for annual physical. Plan is as follows: Type II diabetes mellitus. Last A1c 6.6. He is on metformin 1000 MG twice a day. He will benefit from injectables at this point and prescription sent for Ozempic. He has seen his service observer in the past 1 year. Foot care discussed. Check A1c. EKG is NSR @ [address] or T wave changes, no BBB and normal intervals Hypertension. Blood pressure reasonably controlled. He has whitecoat hypertension and home BP within normal limits. Increase cardio exercises. Continue current regimen. Hyperlipidemia. Last lipid panel within normal limits. Continue on Atorvastatin 40 MG at night. Anxiety disorder. Mood stable on hydroxyzine 25 MG as needed. BPH. Stable on current regimen and he sees Dr. Camara. Class 1 obesity. He will start on Ozempic which also helps with weight loss. Advised dietary restrictions and regimental exercise. Goal is to lose 5-6 lbs a month. Eye screening. He sees his service observer regularly. Dental screening. He sees dentist regularly. Skin cancer screening. No skin issues at this point. Colon cancer screening. He had a cologuard last year which is good for 3 years. Immunizations. He is up-to-date on his COVID-19 vaccinations. Blood work reviewed with patient and questions answered. Screening blood work before next appointment. General health concerns discussed with patient. Scribe services used to formulate this note under HIPAA compliance and under [place] law mandated for scribe services. Patient aware of service. Verbal consent and written consent taken from the patient. Patient understands and verbalizes understanding of the scribes services and all questions answered regarding scribes services. Patient agrees to use of scribes services. 12/05/2023 Encounter for general adult medical examination without abnormal findings (ICD-10 - Z00.00) 04/11/2024 Male erectile dysfunction, unspecified (ICD-10 - N52.9) 04/17/2024 Male erectile dysfunction, unspecified (ICD-10 - N52.9) 06/04/2024 Type 2 diabetes mellitus without complications (ICD-10 - E11.9) 07/04/2024 Type 2 diabetes mellitus with unspecified [...] rest of the medications. He is seen service observer in the past 1 year. He is [...] (ICD-10 - I10) [place] 48 years old bala gentleman with [...] rest of the medications. He is seen service observer in the past 1 year. He is [...] with weight loss. Screening blood work ordered 12/04/2023 Essential (primary) hypertension (ICD-10 - I10) Mr. Lowe is a 47 year old gentleman with DM type II, hypertension, hyperlipidemia, BPH, CKD and white coat hypertension here for annual physical. Plan is as follows: Type II diabetes mellitus. Last A1c 6.6. He is on metformin 1000 MG twice a day. He will benefit from injectables at this point and prescription sent for Ozempic. He has seen his service observer in the past 1 year. Foot care discussed. Check A1c. EKG is NSR @ [address] or T wave changes, no BBB and normal intervals Hypertension. Blood pressure reasonably controlled. He has whitecoat hypertension and home BP within normal limits. Increase cardio exercises. Continue current regimen. Hyperlipidemia. Last lipid panel within normal limits. Continue on Atorvastatin 40 MG at night. Anxiety disorder. Mood stable on hydroxyzine 25 MG as needed. BPH. Stable on current regimen and he sees Dr. Camara. Class 1 obesity. He will start on Ozempic which also helps with weight loss. Advised dietary restrictions and regimental exercise. Goal is to lose 5-6 lbs a month. Eye screening. He sees his service observer regularly. Dental screening. He sees dentist regularly. Skin cancer screening. No skin issues at this point. Colon cancer screening. He had a cologuard last year which is good for 3 years. Immunizations. He is up-to-date on his COVID-19 vaccinations. Blood work reviewed with patient and questions answered. Screening blood work before next appointment. General health concerns discussed with patient. Scribe services used to formulate this note under HIPAA compliance and under [place] law mandated for scribe services. Patient aware of service. Verbal consent and written consent taken from the patient. Patient understands and verbalizes understanding of the scribes services and all questions answered regarding scribes services. Patient agrees to use of scribes services. 07/04/2024 Hyperlipidemia, unspecified (ICD-10 - E78.5) Ventura 48 years old pleasant gentleman with [...] rest of the medications. He is seen service observer in the past 1 year. He is [...] with weight loss. Screening blood work ordered 06/04/2024 Essential (primary) hypertension (ICD-10 - I10) 12/04/2023 Hyperlipidemia, unspecified (ICD-10 - E78.5) Mr. Lowe is a 47 year old gentleman with DM type II, hypertension, hyperlipidemia, BPH, CKD and white coat hypertension here for annual physical. Plan is as follows: Type II diabetes mellitus. Last A1c 6.6. He is on metformin 1000 MG twice a day. He will benefit from injectables at this point and prescription sent for Ozempic. He has seen his service observer in the past 1 year. Foot care discussed. Check A1c. EKG is NSR @ [address] or T wave changes, no BBB and normal intervals Hypertension. Blood pressure reasonably controlled. He has whitecoat hypertension and home BP within normal limits. Increase cardio exercises. Continue current regimen. Hyperlipidemia. Last lipid panel within normal limits. Continue on Atorvastatin 40 MG at night. Anxiety disorder. Mood stable on hydroxyzine 25 MG as needed. BPH. Stable on current regimen and he sees Dr. Camara. Class 1 obesity. He will start on Ozempic which also helps with weight loss. Advised dietary restrictions and regimental exercise. Goal is to lose 5-6 lbs a month. Eye screening. He sees his service observer regularly. Dental screening. He sees dentist regularly. Skin cancer screening. No skin issues at this point. Colon cancer screening. He had a cologuard last year which is good for 3 years. Immunizations. He is up-to-date on his COVID-19 vaccinations. Blood work reviewed with patient and questions answered. Screening blood work before next appointment. General health concerns discussed with patient. Scribe services used to formulate this note under HIPAA compliance and under [place] law mandated for scribe services. Patient aware of service. Verbal consent and written consent taken from the patient. Patient understands and verbalizes understanding of the scribes services and all questions answered regarding scribes services. Patient agrees to use of scribes services. 07/04/2024 Benign prostatic hyperplasia without lower urinary [...] rest of the medications. He is seen service observer in the past 1 year. He is [...] (ICD-10 - R68.82) Ventura 48 years old pleasant gentleman with [...] rest of the medications. He is seen service observer in the past 1 year. He is [...] with weight loss. Screening blood work ordered 12/04/2023 Anxiety disorder, unspecified (ICD-10 - F41.9) Mr. Lowe is a 47 year old gentleman with DM type II, hypertension, hyperlipidemia, BPH, CKD and white coat hypertension here for annual physical. Plan is as follows: Type II diabetes mellitus. Last A1c 6.6. He is on metformin 1000 MG twice a day. He will benefit from injectables at this point and prescription sent for Ozempic. He has seen his service observer in the past 1 year. Foot care discussed. Check A1c. EKG is NSR @ [address] or T wave changes, no BBB and normal intervals Hypertension. Blood pressure reasonably controlled. He has whitecoat hypertension and home BP within normal limits. Increase cardio exercises. Continue current regimen. Hyperlipidemia. Last lipid panel within normal limits. Continue on Atorvastatin 40 MG at night. Anxiety disorder. Mood stable on hydroxyzine 25 MG as needed. BPH. Stable on current regimen and he sees Dr. Camara. Class 1 obesity. He will start on Ozempic which also helps with weight loss. Advised dietary restrictions and regimental exercise. Goal is to lose 5-6 lbs a month. Eye screening. He sees his service observer regularly. Dental screening. He sees dentist regularly. Skin cancer screening. No skin issues at this point. Colon cancer screening. He had a cologuard last year which is good for 3 years. Immunizations. He is up-to-date on his COVID-19 vaccinations. Blood work reviewed with patient and questions answered. Screening blood work before next appointment. General health concerns discussed with patient. Scribe services used to formulate this note under HIPAA compliance and under [place] law mandated for scribe services. Patient aware of service. Verbal consent and written consent taken from the patient. Patient understands and verbalizes understanding of the scribes services and all questions answered regarding scribes services. Patient agrees to use of scribes services. 12/04/2023 Benign prostatic hyperplasia without lower urinary tract symptoms (ICD-10 - N40.0) Mr. Lowe is a 47 year old gentleman with DM type II, hypertension, hyperlipidemia, BPH, CKD and white coat hypertension here for annual physical. Plan is as follows: Type II diabetes mellitus. Last A1c 6.6. He is on metformin 1000 MG twice a day. He will benefit from injectables at this point and prescription sent for Ozempic. He has seen his service observer in the past 1 year. Foot care discussed. Check A1c. EKG is NSR @ [address] or T wave changes, no BBB and normal intervals Hypertension. Blood pressure reasonably controlled. He has whitecoat hypertension and home BP within normal limits. Increase cardio exercises. Continue current regimen. Hyperlipidemia. Last lipid panel within normal limits. Continue on Atorvastatin 40 MG at night. Anxiety disorder. Mood stable on hydroxyzine 25 MG as needed. BPH. Stable on current regimen and he sees Dr. Camara. Class 1 obesity. He will start on Ozempic which also helps with weight loss. Advised dietary restrictions and regimental exercise. Goal is to lose 5-6 lbs a month. Eye screening. He sees his service observer regularly. Dental screening. He sees dentist regularly. Skin cancer screening. No skin issues at this point. Colon cancer screening. He had a cologuard last year which is good for 3 years. Immunizations. He is up-to-date on his COVID-19 vaccinations. Blood work reviewed with patient and questions answered. Screening blood work before next appointment. General health concerns discussed with patient. Scribe services used to formulate this note under HIPAA compliance and under [place] law mandated for scribe services. Patient aware of service. Verbal consent and written consent taken from the patient. Patient understands and verbalizes understanding of the scribes services and all questions answered regarding scribes services. Patient agrees to use of scribes services. 07/04/2024 Other obesity due to excess calories (ICD-10 - E66.09) [place] 48 years old pleasant gentleman with [...] rest of the medications. He is seen service observer in the past 1 year. He is [...] rest of the medications. He is seen service observer in the past 1 year. He is [...] Screening blood work ordered Plan Of Treatment Pending Test Test Name Order Date Comp. Metabolic Panel (14) 12/29/2017 COMPREHENSIVE METABOLIC PANEL 05/12/2022 HEMOGLOBIN A1C 12/29/2017 LIPID PANEL 05/12/2022 MICROALBUMIN, URINE 05/12/2022 Urine Microalbumin (24 Hour) 12/29/2017 Future Test Test Name Order Date US Liver 01/04/2018 HEMOGLOBIN A1C WITH EST GLUCOSE 01/16/20 20 Hemoglobin [id number] 07/04/2024 Testosterone, Free+Total LC/MS-975570 Albumin/Creatinine Ratio,Urine-011512 Lipid Panel-[id number] 07/04/2024 Comp. Metabolic Panel ([id number] 2023 PSA (Serial Monitor)-[id number] 07/04/2024 Next Appt Details Provider Name:MARANDA ALMANZAR , 12/05/2024 10:00:00 AM, [address] [place] [address], [phone], Insurance Providers Payer Name Payer Address Payer Phone Subscriber Number Group Number Insured Name Patient Relationship to Insured Coverage Start Date Coverage End Date [facility] [address] [place] [phone] [id number] Ventura Lowe Self - patient is the insured 4 Medical (General) History Medical History History ICD Code Essential (primary) hypertension I10 Fatty liver Class I obesity DM type II Benign prostatic hyperplasia and he sees urologist at [facility] Chronic kidney disease and he sees Dr. Heather [place] hypertension. 24 h our blood pressure monitoring in 2019 by quick print operator Surgical History Surgery Date(Month/Year) kidney stones
--- OUTSIDE RECORDS SUMMARY | 2024-11-01 08:49 | XMS_ITS ---
Author Organization [facility] Address [address] [place] [phone] Care Team Providers Care Orthopaedic Surgeon Name Role Phone MARANDA ALMANZAR Primary Care Provider REASON FOR VISIT Ozempic 1 mg Medications Medication SIG (Take, Route, Frequency, Duration) Notes Start Date End Date Status Ozempic (1 MG/DOSE) 4 MG/3ML Inject 1 mg Subcutaneous Once weekly for 30 days 07/09/2024 Active Encounters Encounter Location Date Provider Diagnosis [facility] [address] [address] 07/09/2024 MARANDA ALMANZAR Plan Of Treatment Medication Medication Name Sig Start Date Stop Date Notes Ozempic (1 MG/DOSE) 4 MG/3ML Inject 1 mg Subcutaneous Once weekly for 30 days 07/09/2024 Next Appt Details Provider Name:MARANDA ALMANZAR , 12/05/2024 10:00:00 AM, [address] [place] [address], [place], [address], Progress Notes * Ventura LOWEDOB: [birth year] (48 yo M)Acc No.[id number]:07/09/2024 Patient:?YANELIVentura VENEGAS :1975???Age:48 Y???Sex:Male Address:[address] [place] [id number] * Refills? Start Ozempic (1 MG/DOSE) Solution Pen-injector, 4 MG/3ML, Subcutaneous, 1, Inject 1 mg, Once weekly, 30 days, Refills=3 * true * Date:? Generated for Sun johnson/Rocco/Selmaitting on:?11/01/2024 08:49 AM EDT
--- OUTSIDE RECORDS SUMMARY | 2024-11-01 08:50 | XMS_ITS | Clinical Summary ---
Author Organization [facility] Address [address] [place] [address] Care Team Providers Care Superintendent Pier Name Role Phone Unavailable Primary Care Provider Unavailabl e Social History Tobacco Use Types Packs/Day Years Used Date Smoking Tobacco: Never Assessed Sex and Gender Information Value Date Recorded Sex Assigned at Not on file Legal Sex Male 8:39 AM EST Gender Identity Not on file Sexual Orientation Not on file Plan of Treatment Health Maintenance Due Date Last Done Comments DTaP,Tdap,and Td Vaccines (1 - Tdap) 1992 Hepatitis B Vaccines (1 of 3 - 19+ 3-dose series) 1992 Pneumococcal Vaccine: 50+ Ye ars (1 of 1 - PCV) 12/09/2023 Zoster Vaccines (1 of 2) 12/09/2023 COVID-19 Vaccine ( - 2023-2 5 season) 2024 Influenza Vaccine (#1) 2024 HIB Vaccines Aged Out No longer eligi ble based on patient's age to complete this topic HPV Vaccines Aged Out No longer eligi ble based on patient's age to complete this topic Hepatitis A Vaccines Aged Out No long er eligible based on patient's age to complete this topic IPV Vaccines Aged Out No longer eligi ble based on patient's age to complete this topic MMR Vaccines Aged Out No longer eligi ble based on patient's age to complete this topic Meningococcal ACWY Vaccine Aged Out N o longer eligible based on patient's age to complete this topic Meningococcal B Vacine Aged Out No lo nger eligible based on patient's age to complete this topic Pneumococcal Vaccine: Pediat rics (0 to 5 Years) and At-Risk Patients (6 to 64 Years) Aged Out No longer eligible b ased on patient's age to complete this topic RSV Immunization Patients Un mik 20 months Aged Out No longer eligible b ased on patient's age to complete this topic Varicella Vaccines Aged Out No longer eligible based on patient's age to complete this topic
--- OUTSIDE RECORDS SUMMARY | 2024-11-01 08:50 | XMS_ITS | Clinical Summary ---
Author Organization [facility] Address [address] [address] Care Team Providers Care Senior Sales Operations Manager Name Role Phone Elvira Duncan MD Primary Care Provider [phone] Allergies No known active allergies Medications atorvastatin (LIPITOR) 40 MG tablet 1 (one) time each day Active tamsulosin (FLOMAX) 0.4 MG 24 hr capsule TAKE 1 CAPSULE BY MOUTH EVERYDAY AT BEDTIME 07/01/2020 Active metFORMIN (GLUCOPHAGE) 1000 MG tablet Take 1,000 mg by mouth 2 (two) times a day with meals 07/17/2020 Active lisinopril (PRINIVIL,ZESTR IL) 30 MG tablet 09/21/2020 Active hydrOXYzine (ATARAX) 25 MG tablet TAKE 1 TABLET BY MOUTH EVERY 8 HOURS NEEDED 08/16/2020 Active hydroCHLOROthia zide (HYDRODIURIL) 12.5 MG tablet 09/21/2020 Acti ve Ozempic, 0.25 or 0.5 MG/DOSE, 2 MG/3ML solution pen-injector Inject 0.5 mg under the skin every 7 (seven) days 09/30/2023 Active Active Problems Problem Noted Date Diagnosed Date Hypertension 09/24/2020 Proteinuria, not otherwise specified 09/24/2020 Obstructive nephropathy 09/24/2020 Renal stone 09/23/2020 Type 2 diabetes mellitus without complication Resolved Problems Problem Noted Date Diagnosed Date Resolved Date Acute nontraumatic kidney injury 09/23/2020 10/01/2023 Vesicoureteric reflux 09/23/20202020 Encounters Date Type Department Care Team Description 10/01/2024 Orders Only [facility] [address] [place] [phone] Byron Grullon MD Hypertension; Proteinuria, not otherwise specified; Obstructive nephropathy; Type 2 diabetes mellitus without complication (HCC); Renal stone 09/30/2024 8:20 AM EST Office Visit [facility] [place] [facility] [id number] [facility] [address] [place] [phone] Byron Grullon MD Hypertension (Primary Dx); Obstructive nephropathy; Proteinuria, not otherwise specified; Renal stone; Type 2 diabetes mellitus without complication (HCC) from Last 3 Months Immunizations Name Administration Dates Next Due Influenza Split High Dose Preservative Free IM 0 04/17/2020 Family History Medical History Relation Comments Stroke Father Hypertension Sibling brother Relation Status Comments Father Alive Mother Sibling Social History Tobacco Use Types Packs/Day Years Used Date Smoking Tobacco: Never Smokeless Tobacco: Never Alcohol Use Standard Drinks/Week Comments Yes 0 (1 standard drink = 0.6 oz pure alcohol) Alcoholic Drinks/day: Occasional social drink Sex and Gender Information Value Date Recorded Sex Assigned at Male 09/30/2023 6:57 AM EST Legal Sex Male 5:02 PM EST Gender Identity Male 09/30/2023 6:57 AM EST Sexual Orientation Straight 09/30/2023 6: 57 AM EST Last Filed Vital Signs Vital Sign Reading Time Taken Comments Blood Pressure 156/94 09/30/2024 8:18 AM EST Pulse 74 09/30/2024 8:18 AM EST Temperature - - Respiratory Rate - - Oxygen Saturation 97% 09/30/2024 8:18 AM EST Inhaled Oxygen Concentration - - Weight 97.8 kg (215 lb 9.6 oz) 09/30/2024 8:18 A M EST Height 177.8 cm (5' 10 ) 09/30/2024 8:18 AM EST Body Mass Index 30.94 09/30/2024 8:18 AM EST Plan of Treatment Upcoming Encounters Date Type Department Care Team (Late st Contact Info) Description 09/30/2025 8:20 AM EST Office Visit [facility] [address] [facility] [address] [place] [address] Byron Grullon MD [address] [facility] [address] [place] [address] Health Maintenance Due Date Last Done Comments Pneumococcal Vaccine: Pediat rics (0 to 5 Years) and At-Risk Patients (6 to 64 Years) (1 of 2 - PCV) 12/09/1979 Hepatitis B Vaccine (1 of 3 - 19+ 3-dose series) 1992 Diabetes: Ophthalmology Exam 08/27/2020 Diabetes: Pedal Pulse Checked 08/27/2020 Diabetes: Sensory Foot Exam 08/27/2020 Diabetes: Visual Foot Exam 08/27/2020 Colorectal Cancer Screening: Annual FOBT 2022 Colorectal Cancer Screening: Colonoscopy 2022 Colorectal Cancer Screening: Sigmoidoscopy 2022 Influenza Vaccine (#1) 2024 04/17/2020 Diabetes: Hemoglobin A1C 12/24/2024 025, 09/18/2019, 03/28/2019 Procedures Procedure Name Priority Date/Time Associated Diagnosis Comments PTH, INTACT Routine 09/26/2024 6:07 AM EST MAGNESIUM Routine 09/26/2024 6:07 AM EST PHOSPHATE ( PHOSPHORUS) Routine 09/26/2024 6:07 AM EST URIC ACID Routine 09/26/2024 6:07 AM EST VITAMIN D 25 HYDROXY Routine 09/26/2024 6:07 AM EST HEMOGLOBIN A1C Routine 09/26/2024 6:07 AM EST PSA, TOTAL AND FREE Routine 09/26/2024 6 :07 AM EST PROTEIN / CREATININE RATIO, URINE Routine 09/26/2024 6:07 AM EST LIPID PANEL Routine 09/26/2024 6:07 AM EST URINALYSIS WITH MICROSCOPIC Routine 09/26/2024 6:07 AM EST COMPREHENSIVE METABOLIC PANEL Routine 09/26/2024 6:07 AM EST CBC AND DIFFERENTIAL Routine 09/26/2024 6:07 AM EST MICROSCOPIC EXAMINATION - DO NOT USE Routine 09/26/2024 6:07 AM EST from Last 3 Months Results * Microscopic Examination (09/26/2024 6:07 AM EST) WBC, Urine None seen 0 - 5 /hpf [facility] RBC, Urine None seen 0 - 2 /hpf [facility] Squamous Epithelial, Urine None seen 0 - 10 /hpf [facility] Casts None seen None seen /lpf [facility] Bacteria, Urine None seen None seen/Few [facility] 09/26/2024 6:07 AM EST 09/26/2024 Byron Grullon MD LAB MICROBIOLOGY - GENERAL OR DERABLES Final Result [facility] [address] [place] [address] * Protein, Total, Random Urine w/Creatinine (Protein/Creat Ratio) (09/26/2024 6:07 AM EST) Creatinine, Ur 50.1 Not Estab. mg/dL [facility] Protein, Ur 4.9 Not Estab. mg/dL [facility] Urine Protein/Creatin ine Ratio 98 0 - 200 mg/g creat [facility] 09/26/2024 6:07 AM EST 09/26/2024 us Byron Dicampli MD LAB URINE ORDERABLES Final Re sult Performing Organization Address City/[facility]/ZIP Co de Phone Number [facility] [employer] [facility] [address] [place] [address] * Vitamin D 25 Hydroxy (09/26/2024 6:07 AM EST) Vitamin D, 25-OH, Total 52.3 30.0 - 100.0 ng/mL [facility] Comment: Vitamin D deficiency has been defined by the [place] of Medicine and an Endocrine Society practice guideline as a level of serum 25-OH vitamin D less than 20 ng/mL (1,2). The Endocrine Society went on to further define vitamin D insufficiency as a level between 21 and 29 ng/mL (2). 1. IOM ([place] of Medicine). 2010. Dietary reference ?? intakes for calcium and D. [place]: The ?? National [place] [employer] Website Press. 2. Nelson MF, Shona BILLINGS, Belkis ARELLANO, et al. ?? Evaluation, treatment, and prevention of vitamin D ?? deficiency: an Endocrine Society clinical practice ?? guideline. JCEM. 2010; 96(7):1911-30. 09/26/2024 6:07 AM EST 09/26/2024 Byron Grullon MD LAB BLOOD ORDERABLES Final Re sult Performing Organization Address City/[facility]/ZIP Co de Phone Number [facility] [employer] [facility] [address] [place] [address] * Urinalysis with microscopic (09/26/2024 6:07 AM EST) Specific [place], Urine 1.008 1.005 - 1.030 [facility] pH Urine 7.5 5.0 - 7.5 [facility] [phone] Color, Urine Yellow Yellow [facility] [phone] Appearance Urine Clear Clear [facility] [phone] WBC Esterase Urine Negative Negative [facility] Protein, Ur Negative Negative/Tra ce [facility] Glucose, Ur Negative Negative [facility] [phone] Ketones, Urine Negative Negative [facility] Blood Urine Negative Negative [facility] Bilirubin Urine Negative Negative [facility] Urobilinogen Urine 0.2 0.2 - 1.0 mg/dL [facility] [phone] Nitrite, Urine Negative Negative [facility] [phone] Microscopic Examination Comment [facility] Comment:Microscopic follows if indicated. Other Microsc. Observations See below: [facility] Comment:Microscopic was ariadna cated and was performed. 09/26/2024 6:07 AM EST 09/26/2024 us Byron Grullon MD LAB URINE ORDERABLES Final Re sult [facility] [address] [place] [address] * CBC and Differential (09/26/2024 6:07 AM EST) WBC 5.9 3.4 - 10.8 x10E3/uL [facility] RBC 4.65 4.14 - 5.80 x10E6/uL [facility] Hemoglobin 14.4 13.0 - 17.7 g/dL [facility] Hematocrit 43.3 37.5 - 51.0 % [facility] MCV 93 79 - 97 fL [facility] MCH 31.0 26.6 - 33.0 pg [facility] MCHC 33.3 31.5 - 35.7 g/dL [facility] RDW 12.5 11.6 - 15.4 % [facility] Platelets 275 150 - 450 x10E3/uL [facility] Neutrophils Relative 51 Not Estab. % [facility] Lymphocytes Relative 35 Not Estab. % [facility] Monocytes 9 Not Estab. % [facility] Eosinophils Relative 4 Not Estab. % [facility] Basophils Relative 1 Not Estab. % [facility] Neutrophils Absolute 3.0 1.4 - 7.0 x10E3/uL [facility] Lymphocytes Absolute 2.1 0.7 - 3.1 x10E3/uL [facility] Monocytes Absolute 0.5 0.1 - 0.9 x10E3/uL [facility] Eosinophils Absolute 0.2 0.0 - 0.4 x10E3/uL [facility] Basophils Absolute 0.1 0.0 - 0.2 x10E3/uL [facility] Immature Granulocytes 0 Not Estab. % [facility] Immature Grans (Absolute) 0.0 0.0 - 0.1 x10E3/uL [facility] 09/26/2024 6:07 AM EST 09/26/2024 us Byron Grullon MD LAB BLOOD ORDERABLES Final Re sult [facility] [address] [place] [address] * PSA, total and free (09/26/2024 6:07 AM EST) PSA 2.1 0.0 - 4.0 ng/mL [facility] Comment: HTP ECLIA methodology. According to the [place] U[employer] Association, Serum PSA should decrease and remain at undetectable levels after radical prostatectomy. The AUA defines biochemical recurrence as an initial PSA value 0.2 ng/mL or greater followed by a subsequent confirmatory PSA value 0.2 ng/mL or greater. Values obtained with different assay methods or kits cannot be used interchangeably. Results cannot be interpreted as absolute evidence of the presence or absence of malignant disease. PSA, Free 0.41 N/A ng/mL [facility] Comment:VidaaoIA methodol ogy. PSA Free Percent 19.5 % Lab [facility] Comment: The table below lists the probability of prostate cancer for men with non-suspicious CYRUS results and total PSA between 4 and 10 ng/mL, by patient age (Sandoval et al, ADAN 1998, 279:1542). ?% Free PSA ? 50-64 yr ?65-75 yr ?0.00-10.00% ?56% ? 55% ? 10.01-15.00% ?24% ? 35% ? 15.01-20.00% ?17% ? 23% ? 20.01-25.00% ?10% ? 20% ?>25.00% ? 5% ?9% Please note: ??Sandoval et al did not make specific ?recommendations regarding the use of ?percent free PSA for any other population ?of men. 09/26/2024 6:07 AM EST 09/26/2024 Byron Grullon MD LAB BLOOD ORDERABLES Final Re sult Performing Organization Address [facility] de Phone Number [employer] [facility] [address] [place] [address] * Uric Acid (09/26/2024 6:07 AM EST) Uric Acid 5.8 3.8 - 8.4 mg/dL [facility] Comment:Therapeutic target f or gout patients: <6.0 09/26/2024 6:07 AM EST 09/26/2024 Byron Grullon MD LAB BLOOD ORDERABLES Final Re sult Performing Organization Address [facility] de Phone Number [employer] [facility] [address] [place] [address] * Phosphorus (09/26/2024 6:07 AM EST) Phosphorus 2.9 2.8 - 4.1 mg/dL [facility] 09/26/2024 6:07 AM EST 09/26/2024 Byron Grullon MD LAB BLOOD ORDERABLES Final Re sult Performing Organization Address [facility] de Phone Number [employer] [facility] [address] [place] [address] * (ABNORMAL) PTH, Intact (09/26/2024 6:07 AM EST) PTH 13(L) 15 - 65 pg/mL [facility] 09/26/2024 6:07 AM EST 09/26/2024 Byron Grullon MD LAB BLOOD ORDERABLES Final Re sult [facility] [address] [place] [address] * Magnesium (09/26/2024 6:07 AM EST) Pathologist [facility] Magnesium 2.0 1.6 - 2.3 mg/dL [facility] 09/26/2024 6:07 AM EST 09/26/2024 Byron Grullon MD LAB BLOOD ORDERABLES Final Re sult Performing Organization Address City/[facility]/ZIP Co de Phone Number [facility] [address] [place] [address] * (ABNORMAL) Hemoglobin A1c (09/26/2024 6:07 AM EST) Pathologist [facility] Hemoglobin A1C 6.0(H) 4.8 - 5.6 % [facility] Comment: ? Prediabetes: 5.7 - 6.4 ? Diabetes: >6.4 ? Glycemic control for adults with diabetes: <7.0 09/26/2024 6:07 AM EST 09/26/2024 Byron Grullon MD LAB BLOOD ORDERABLES Final Re sult [facility] [address] [place] [address] * (ABNORMAL) Lipid panel (09/26/2024 6:07 AM EST) Cholesterol 103 100 - 199 mg/dL [facility] Triglycerides 88 0 - 149 mg/dL [facility] HDL 34(L) >39 mg/dL [facility] VLDL Cholesterol Tushar 17 5 - 40 mg/dL [facility] LDL Calculated 52 0 - 99 mg/dL [facility] 09/26/2024 6:07 AM EST 09/26/2024 us Byron Grullon MD LAB BLOOD ORDERABLES Final Re sult [facility] [address] [place] [address] * (ABNORMAL) Comprehensive Metabolic Panel (09/26/2024 6:07 AM EST) Glucose 126(H) 70 - 99 mg/dL [facility] BUN 16 6 - 24 mg/dL [facility] Creatinine 1.07 0.76 - 1.27 mg/dL [facility] eGFR CKD-EPI CR 2020 85 >59 mL/min/1.7 3 [facility] BUN/Creatinine Ratio 15 9 - 20 [facility] Sodium 138 134 - 144 mmol/L [facility] Potassium 4.7 3.5 - 5.2 mmol/L [facility] Chloride 100 96 - 106 mmol/L [facility] Bicarbonate (CO2) 25 20 - 29 mmol/L [facility] Calcium 9.8 8.7 - 10.2 mg/dL [facility] Total Protein 6.7 6.0 - 8.5 g/dL [facility] Albumin 4.6 4.1 - 5.1 g/dL [facility] Globulin 2.1 1.5 - 4.5 g/dL [facility] Total Bilirubin 0.5 0.0 - 1.2 mg/dL [facility] Alkaline Phosphatase 99 44 - 121 IU/L [facility] AST (SGOT) 28 0 - 40 IU/L [facility] ALT (SGPT) 33 0 - 44 IU/L [facility] 09/26/2024 6:07 AM EST 09/26/2024 us Byron Grullon MD LAB BLOOD ORDERABLES Final Re sult [facility] [address] [place] [address] from Last [address] [place] [address] [facility] Care Teams Senior Sales Operations Manager Relationship Specialty Start Date End Date Elvira Duncan MD [address] [place] [address] PCP - General 08/10/20
--- OUTSIDE RECORDS SUMMARY | 2024-11-01 08:50 | XMS_ITS ---
Author Organization [facility] Address [address] [address] Care Team Providers Care Cloud Security Architect Name Role Phone MARANDA ALMANZAR Primary Care Provider Results Component Value Reference Range Notes Hemoglobin [id number] Reviewed date:06/30/2024 09:42:53 AM Interpretation: Performing Lab:[facility], [address] [place] [address], Phone - [phone], Director - MDJodry Notes/Report: Hemoglobin A1c 6.6 4.8-5.6 % . Prediabetes: 5.7 - 6.4 Diabetes: >6.4 Glycemic control for adults with diabetes: <7.0 Basic Metabolic Panel ([phone] Reviewed date:06/30/2024 09:43:02 AM Interpretation: Performing Lab:[facility], [address] [facility], Phone - [phone], Director - MDJodry Notes/Report: Glucose 166 70-99 mg/dL BUN 18 6-24 mg/dL Creatinine 1.16 0.76-1.27 mg/dL eGFR 77 >59 mL/min/1.73 BUN/Creatinine Ratio 16 9-20 Sodium 138 134-144 mmol/L Potassium 4.8 3.5-5.2 mmol/L Chloride 100 96-106 mmol/L Carbon Dioxide, Total 24 20-29 mmol/L Calcium 9.6 8.7-10.2 mg/dL REASON FOR VISIT Lab orders request Encounters Encounter Location Date Provider Diagnosis [facility] [address] [address] 06/04/2024 MARANDA ALMANZAR Type 2 diabetes mellitus without complications E11.9 and Essential (primary) hypertension I10 Assessments Encounter Date Diagnosis (ICD Code) Assessment Notes Treatment Notes Treatment Clinical Notes Section Notes 06/04/2024 Type 2 diabetes mellitus without complications (ICD-10 - E11.9) 06/04/2024 Essential (primary) hypertension (ICD-10 - I10) Plan Of Treatment Next Appt Details Provider Name:MARANDA ALMANZAR , 12/05/2024 10:00:00 AM, [address] [place] [address], [phone], Progress Notes * Ventura LOWEDOB: [birth year] (48 yo M)Acc No.[id number]:06/04/2024 Patient:?Ventura LOWE :1975???Age:48 Y???Sex:Male Address:[address] [place] [address] Subjective: * Chief Complaints: * ???Lab orders request * Medical History:? * Surgical History:? * Hospitalization/Major Diagno stic Procedure:? * Medications:? Objective: * Vitals:? * Physical Examination:? Assessment: * Assessment: 1.?Type 2 diabetes mellitus without complications - E11.9???2.?Essential (primary) hypertension - I10??? Plan: * Treatment: 2.?Essential (primary) hyper tension?LAB: Hemoglobin [id number] ?LAB: Basic Metabolic Panel [id number] * Procedure Codes:? * true * Date:? Generated for Sun johnson/Rocco/eTransmitting on:?11/01/2024 08:49 AM EDT
== END 2024-11-01 09:00 | disposition home or self-care (01) ==
LOC: HO.HUSH 08:27
PROVIDERS: PCP Hospitalist; Visit Provider Urology
DX: N40.1 Benign prostatic hyperplasia with lower urinary tract symptoms (principal); N52.9 Male erectile dysfunction, unspecified; E34.9 Endocrine disorder, unspecified
CPT/HCPCS: 99214

== ENCOUNTER 2025-01-30 08:41 | Outpatient (AMB) | payer OTHER, SELFPAY ==
--- NOTE | 2025-01-30 08:45 | A.OFFVIS_ITS ---
Intake Visit Reasons: 3m follow up Intake Note: Patient is present for 3M F/U Urology Medication:TAMSULOSIN,TADALAFIL,VITAMIN B6 Antibiotic Allergy:NONE Blood Thinner:NONE Refrigerator Repair Technician Required: No Allergies No Known Allergies Allergy (Verified 01/30/25 08:46) HPI Comments Details: Ventura is a pleasant male. He is a patient of Dr. Duncan. He is seen with the following urologic conditions - lower urinary tract symptoms - hypogonadism in setting of diabetes Telemedicine Evaluation 15 min Consultation [employer] Cathleen Video Follow-up from trial daily tadalafil Has noticed return of morning erections which confirms testosterone advent Will lower dose to 6.25 daily Refill tadalafil Discussed diabetic management - high density calorie restriction, carb restriction, timed restricted eating Hypogonadism in setting of diabetes Trial daily tadalafil and enclomiphene Lower urinary tract symptoms Prior diagnosis with trapped prostate Primary symptoms weakness of stream Background diabetes with metformin, hydrochlorothiazide, atorvastatin, Ozempic Does well on Flomax Prior discussion of potential for transurethral incision of prostate PSA 10/20 1.8, 10/22 2.2 Prior history kidney stones PFSH Medical History Diabetes mellitus Hyperlipidemia HTN (hypertension) Benign non-nodular prostatic hyperplasia with lower urinary tract symptoms Surgical History History of surgery Telehealth Telehealth Telehealth Platform: [employer] Location of provider rendering services: practice address Location of patient: address on file Patient Identification confirmed using: Name, : Yes Telehealth method: video Patient verbally consented to treatment: Yes Patient verbally consented to billing insurance company: Yes Patient informed of any privacy concerns related to visit: Yes Minutes spent on Phone/Video with Pt.: 15 Assessment & Plan Assessment & Plan (1) Erectile dysfunction: Code(s): N52.9 - Male erectile dysfunction, unspecified Category: Medical (2) Benign non-nodular prostatic hyperplasia with lower urinary tract symptoms: Code(s): N40.1 - Benign prostatic hyperplasia with lower urinary tract symptoms Category: Medical (3) Testosterone insufficiency: Code(s): E34.9 - Endocrine disorder, unspecified Category: Medical Plan Decrease enclomiphene Refill tadalafil Six-month follow-up Orders: Orders Testosterone, Total 5 Months E34.9 - Endocrine disorder, unspecified Prostate Specific Antigen 5 Months E34.9 - Endocrine disorder, unspecified Medications: Refilled tadalafil BIN PCN Group [facility] [id number] 5 mg PO DAILY 90 tabs 1RF 90 days N40.1 - Benign prostatic hyperplasia with lower urinary tract symptoms Patient Instructions: This note is constructed using voice recognition software. While every effort has been made to ensure accuracy senior contracts administrator errors may have been included. Imaging studies, laboratory and physical exam results were discussed and reviewed in detail. No major barriers to patient understanding were identified. An opportunity to ask questions regarding the treatment plan was provided. All questions were answered. The patient expressed understanding and agreement with the above treatment plan. The patient is aware they should contact our office by phone for worsening of their current condition or the appearance of new urologic symptoms. Compliance is encouraged with any medications and followup testing that is ordered. It is a privilege to participate in the urologic care of your patient. If you have any questions or concerns regarding treatment for the above conditions, or other urologic issues, please do not hesitate to contact me. The office telephone contact is [phone]. Sincerely, Dr Brian Lewis MD, ANITHA [facility] - Urology Compassionate Specialist Care for the Genitourinary System Coding Level of Care Code Est Pt Level 4 (68805) Complex EM visit Add On G2211 Diagnoses Erectile dysfunction N52.9 Benign non-nodular prostatic hyperplasia with lower urinary tract symptoms N40.1 Testosterone insufficiency E34.9
--- OUTSIDE RECORDS SUMMARY | 2025-01-30 08:47 | XMS_ITS | Clinical Summary ---
Author Organization [facility] ity Address [address] [place] [address] Care Team Providers Care Graduate Teaching Associate Name Role Phone Unavailable Primary Care Provider [...] - 2023-2 5 season) 2024 Influenza Vaccine (Season Ended) 2025 HIB Vaccines Aged Out No longer eligi [...] age to complete this topic Meningococcal B Vaccine Aged Out No l onger eligible based on patient's age to complete [...]
--- OUTSIDE RECORDS SUMMARY | 2025-01-30 08:47 | XMS_ITS | Clinical Summary ---
Author Organization [facility] Address [address] [address] Care Team Providers Care Personal Financial Counselor Name Role Phone Elvira Duncan MD Primary Care Provider [phone] Allergies No known active allergies Medications atorvastatin [...] kidney injury 09/23/2020 10/01/2023 Vesicoureteric reflux 09/23/20202020 Immunizations Immunization Administration Dates Next Due Influenza Split High [...] Office Visit [facility] [address] [phone] Byron Grullon MD [address] [phone] Health Maintenance Due Date Last Done Comments Hepatitis B Vaccine (1 of 3 - 19+ 3-dose series) 1992 Pneumococcal Vaccine: 50+ Ye ars (1 of 2 - PCV) 1992 Diabetes: Ophthalmology Exam 08/27/2020 Diabetes: Pedal Pulse Checked 08/27/2020 Diabetes: Sensory Foot Exam 08/27/2020 Diabetes: Visual Foot Exam 08/27/2020 Colorectal Cancer Screening: Annual FOBT 2022 Colorectal Cancer Screening: Colonoscopy 2022 Colorectal Cancer Screening: Sigmoidoscopy 2022 Diabetes: Hemoglobin A1C 12/24/2024 025, 09/18/2019, 03/28/2019 Influenza Vaccine (Season Ended) 2025 04/17/20 20 Procedures Procedure Name Priority Date/Time Associated Diagnosis Comments HEMOGLOBIN A1C Routine 09/26/2024 6:07 AM EST from Last 3 Months or Most Recently Relevant to Health Maintenance Results * (ABNORMAL) Hemoglobin A1c (09/26/2024 6:07 AM EST) Hemoglobin A1C 6.0(H) 4.8 - 5.6 % [facility] Comment: Prediabetes: 5.7 - 6.4 Diabetes: >6.4 Glycemic control for adults with diabetes: <7.0 09/26/2024 6:07 AM EST 09/26/2024 us Byron Grullon MD LAB BLOOD ORDERABLES Final Re sult [facility] [address] [place] [phone] from Last 3 Months or Most Recently Relevant to Health Maintenance Insurance [facility] Care Teams Personal Financial Counselor Relationship Specialty Start Date End Date Elvira Duncan MD [address] [place] [address] PCP - General 08/10/20
--- OUTSIDE RECORDS SUMMARY | 2025-01-30 08:47 | XMS_ITS | Patient Health Record ---
Author Organization [facility] Address [address] [place] [address] Care Team Providers Care Automotive Technician Instructor Name Role Phone PATTI ALMANZARLOW Primary Care Provider ElijahDawson edmondson Unavailable [phone] Allergies No Known Allergies Results Component Value Reference Range Notes Hemoglobin [id number] Reviewed date:06/30/2024 09:42:53 AM Interpretation: Performing Lab:[facility], [place] [facility], Phone - [phone], Director - MDJodry Notes/Report: Hemoglobin A1c 6.6 4.8-5.6 % . Prediabetes: 5.7 - 6.4 Diabetes: >6.4 Glycemic control for adults with diabetes: <7.0 Basic Metabolic Panel (8)-[id number] Reviewed date:06/30/2024 09:43:02 AM Interpretation: Performing Lab:[facility], [place] [facility], Phone - [phone], Director - MDJodry Notes/Report: Glucose 166 70-99 mg/dL BUN 18 6-24 mg/dL Creatinine 1.16 0.76-1.27 mg/dL eGFR 77 >59 mL/min/1.73 BUN/Creatinine Ratio 16 9-20 Sodium 138 134-144 mmol/L Potassium 4.8 3.5-5.2 mmol/L Chloride 100 96-106 mmol/L Carbon Dioxide, Total 24 20-29 mmol/L Calcium 9.6 8.7-10.2 mg/dL Testosterone, Free+Total LC/ [id number] Reviewed date:01/28/2025 07:54:21 AM Interpretation: Performing Lab:[facility], [address] [facility], Phone - [phone], Director - [facility] Notes/Report: Free Testosterone(Direct) 23.8 7.2-24.0 pg/mL PSA (Serial Monitor)-[id number] Reviewed date:01/27/2025 05:27:07 PM Interpretation: Performing Lab:[facility], [address], [place], Phone - [phone], Director - [facility] Notes/Report: Hemoglobin [id number] Reviewed date:01/26/2025 12:58:51 PM Interpretation: Performing Lab:[facility], [address] [place] [address], Phone - [phone], Director - [facility] Notes/Report: Test(s) 100287-Egyyxvygukae, Total, LC/MS was developed and its performance characteristics determined by [facility]. It has not been cleared or approved by the Food and Drug Administration. Hemoglobin A1c 5.9 4.8-5.6 % . Prediabetes: 5.7 - 6.4 Diabetes: >6.4 Glycemic control for adults with diabetes: <7.0 Albumin/Creatinine Ratio,i ne-886406 Reviewed date:01/26/2025 12:58:57 PM Interpretation: Performing Lab:[facility], [address] [place] [address], Phone - [phone], Director - [facility] Notes/Report: Creatinine, Urine 47.5 Not Estab. mg/dL Albumin, Urine <3.0 Not Estab. ug/mL Alb/Creat Ratio <6 0-29 mg/g creat Normal: 0 - 29 Moderately increased: 30 - 300 Severely increased: >300 Lipid Panel-[id number] Reviewed date:01/26/2025 12:59:06 PM Interpretation: Performing Lab:[facility], [place] [facility], Phone - [phone], Director - [facility] Notes/Report: Cholesterol, Total 106 100-199 mg/dL Triglycerides 58 0-149 mg/dL HDL Cholesterol 32 >39 mg/dL VLDL Cholesterol Tushar 13 5-40 mg/dL LDL Chol Calc (NIH) 61 0-99 mg/dL Comp. Metabolic Panel (14)-3 Reviewed date:01/26/2025 12:59:13 PM Interpretation: Performing Lab:[facility] [place], [address] [place] [address], Phone - [phone], Director - Kim Notes/Report: Creatinine 1.16 0.76-1.27 mg/dL eGFR 76 >59 mL/min/1.73 BUN/Creatinine Ratio 16 9-20 Potassium 4.2 3.5-5.2 mmol/L Protein, Total 6.3 6.0-8.5 g/dL Globulin, Total 2.0 1.5-4.5 g/dL Bilirubin, Total 0.5 0.0-1.2 mg/dL Alkaline Phosphatase 94 44-121 IU/L AST (SGOT) 37 0-40 IU/L ALT (SGPT) 39 0-44 IU/L Reason For Referral No Information Medications Medication SIG (Take, Route, Frequency, Duration) Notes Start Date End Date Status FreeStyle Lite - as directed to check blood sugars Dx: E11.9 in vitro once daily; Duration: 30 days 01/09/2020 Active Tamsulosin HCl 0.4 MG 1 capsule Orally O nce a day; Duration: 30 day(s) Active Tadalafil 5 MG 1 tablet Orally Once a day Active Atorvastatin Calcium 40 MG TAKE 1 TABLET BY MOUTH EVERY DAY; Duration: 90 Active Vitamin B6 50 MG 1 tablet Orally Active hydrOXYzine HCl 25 MG TAKE 1 TABLET BY M OUTH EVERY 8 HOURS FOR 30 DAYS; Duration: 90 Active Misc Natural Products - as directed Orally Empower (enclomiphene Citrate 12.5 once daily) Active Ozempic (1 MG/DOSE) 4 MG/3ML INJECT 1 MG SUBCUTANEOUS ONCE WEEKLY 30 DAYS; Duration: 30 Active Cialis 10 MG 1 tablet Orally Once a day; Duration: 30 days Active metFORMIN HCl 1000 MG TAKE 1 TABLET BY M OUTH TWICE A DAY WITH MEALS 90 DAYS; Duration: 90 Active hydroCHLOROthiazide 12.5 MG 1 capsule in the morning Orally Once a day; Duration: 90 days Active Lisinopril 30 MG TAKE 1 TABLET BY GERALD TH EVERY DAY; Duration: 90 Active FreeStyle Lite Test - DIRECTED TO MELISSA CK BLOOD SUGARS DX: E11.9 ONCE DAILY IN VITRO 30 DAYS Active FreeStyle Lancets - as directed to check blood sugars with freestyle lite device Dx: E11.9 in vitro once daily; Duration: 30 days 01/09/2020 Active Immunizations Vaccine Route Administration Date Status [...] Problem Status W/U Status Risk Notes Problem Secondary diabetes mellitus (7310583) Diabetes mellitus due to underlying condition with hyperglycemia (E08.65) Active confirmed Problem Disorder due to type 2 diabetes mellitus (060662818) Type 2 diabetes mellitus with unspecified complications (E11.8) Active confirmed Problem Type II diabetes mellitus without complication (653033786) Type 2 diabetes mellitus without complications (E11.9) Active confirmed Problem Obesity due to excess calories (379316473) Other obesity due to excess calories (E66.09) Active confirmed Problem Anxiety disorder (933403588) Anxiety disorder, unspecified (F41.9) Active confirmed Problem Fatty liver (232948821) Fatty (change of) liver, not elsewhere classified (K76.0) Active confirmed Problem Chronic kidney disease (112920485) Chronic kidney disease, unspecified (N18.9) Active confirmed Problem Erectile dysfunction (disorder) (920724785) Male erectile dysfunction, unspecified (N52.9) Active confirmed Problem Adult health examination (705161263) Encounter for general adult medical examination without abnormal findings (Z00.00) Active confirmed Problem Hyperlipidemia (63056493) Hyperlipidemia, unspecified (E78.5) Active confirmed Problem Essential hypertension (48772598) Essential (primary) hypertension (I10) Active confirmed Problem Benign prostatic hypertrophy without outflow obstruction (421280243) Benign prostatic hyperplasia without lower urinary tract symptoms (N40.0) Active confirmed Problem Essential hypertension (19956568) HTN (hypertension), benign (I10) Active confirmed Vital Signs Heart Rate 98 /min 01/29/2025 Temperature 99.0 degrees Fahrenheit 01/29/2025 Oximetry 98 % 01/29/2025 Blood pressure diastolic 80 mm Hg 01/29/2025 Height 69.49 in 01/29/2025 Blood pressure systolic 160 mm Hg 01/29/2025 Weight 219.8 lbs 01/29/2025 BMI 32 kg/m2 01/29/2025 Encounters Encounter Location Date Provider Diagnosis [address] [place] [address] 07/04/2024 LOWVESTA ALMANZAR Type 2 diabetes mellitus with unspecified complications E11.8 ; Essential (primary) hypertension I10 ; Hyperlipidemia, unspecified E78.5 ; Benign prostatic hyperplasia without lower urinary tract symptoms N40.0 ; Decreased libido R68.82 ; Other obesity due to excess calories E66.09 and Dietary counseling and surveillance Z71.[address] [place] [address] 01/29/2025 [place] HTN (hypertension), benign I10 ; Annual physical exam Z00.00 ; Impaired fasting glucose R73.01 and Diabetes mellitus due to underlying condition with hyperglycemia E08.[address] [place] [address] 01/24/[address] [place] [address] 02/23/[address] [place] [address] 04/11/2024 LOW GUL Male erectile dysfunction, unspecified N52.[address] [place] [address] 04/17/2024 LOW GUL Male erectile dysfunction, unspecified N52.[address] [place] [address] 04/24/[address] [place] [address] 04/24/2024 [facility] [address] [place] [address] 06/03/2024 [facility] [address] [place] [address] 06/04/2024 [facility] Type 2 diabetes mellitus without complications E11.9 and Essential (primary) hypertension I10 [address] [address] 07/09/2024 [facility]OW [facility] Assessments Encounter Date Diagnosis (ICD Code) Assessment Notes Treatment Notes Treatment Clinical Notes Section Notes 04/11/2024 Male erectile dysfunction, unspecified (ICD-10 - [...] rest of the medications. He is seen mapping pilot in the past 1 year. He is [...] rest of the medications. He is seen mapping pilot in the past 1 year. He is [...] with weight loss. Screening blood work ordered 01/29/2025 Annual physical exam (ICD-10 - Z00.00) 49 years old bala gentleman with DM type II, hypertension, hyperlipidemia, BPH, erectile dysfunction is here today for an annual physical exam plan as following hypertension elevated 160/80, patient has white coat hypertension and his blood pressure usually arises when he comes to the office. He checks blood pressure at home and we discussed all the readings he had most of his blood pressure is 108-122 systolically, diastolic blood pressure ranges around 60-64. EKG was completed today normal sinus rhythm I reviewed the EKG shows heart beat of 86 bpm QTC is 435 no AV blocks no bundle branch block. Diabetes mellitus type , HbA1c has improved to 5.9 previously 6.6. Continue with metformin, continue to check blood sugars as before he does not follow a diabetic diet, encouraged for carb restricted diet. He has been seeing mapping pilot , diabetic foot care was discussed. Hyperlipidemia lab work was discussed cholesterol triglycerides are all within normal limits HDL is slightly low at 32. Continue atorvastatin 40 mg daily prostate screening, the PSA was within normal limits, patient follows with Dr. Camara, he was on testosterone levels are within normal limits he has an appointment tomorrow and will discuss about stopping testosterone supplements. anxiety and depression PHQ 9 is 0 he does not have any depression he sleeps well. Preventive health care discussed and addressed please see in the separate note. 01/29/2025 HTN (hypertension), benign (ICD-10 - I10) 49 years old bala gentleman with DM type II, hypertension, hyperlipidemia, BPH, erectile dysfunction is here today for an annual physical exam plan as following hypertension elevated 160/80, patient has white coat hypertension and his blood pressure usually arises when he comes to the office. He checks blood pressure at home and we discussed all the readings he had most of his blood pressure is 108-122 systolically, diastolic blood pressure ranges around 60-64. EKG was completed today normal sinus rhythm I reviewed the EKG shows heart beat of 86 bpm QTC is 435 no AV blocks no bundle branch block. Diabetes mellitus type , HbA1c has improved to 5.9 previously 6.6. Continue with metformin, continue to check blood sugars as before he does not follow a diabetic diet, encouraged for carb restricted diet. He has been seeing mapping pilot , diabetic foot care was discussed. Hyperlipidemia lab work was discussed cholesterol triglycerides are all within normal limits HDL is slightly low at 32. Continue atorvastatin 40 mg daily prostate screening, the PSA was within normal limits, patient follows with Dr. Camara, he was on testosterone levels are within normal limits he has an appointment tomorrow and will discuss about stopping testosterone supplements. anxiety and depression PHQ 9 is 0 he does not have any depression he sleeps well. Preventive health care discussed and addressed please see in the separate note. 01/29/2025 Impaired fasting glucose (ICD-10 - R73.01) 49 years old pleasant gentleman with DM type II, hypertension, hyperlipidemia, BPH, erectile dysfunction is here today for an annual physical exam plan as following hypertension elevated 160/80, patient has white coat hypertension and his blood pressure usually arises when he comes to the office. He checks blood pressure at home and we discussed all the readings he had most of his blood pressure is 108-122 systolically, diastolic blood pressure ranges around 60-64. EKG was completed today normal sinus rhythm I reviewed the EKG shows heart beat of 86 bpm QTC is 435 no AV blocks no bundle branch block. Diabetes mellitus type , HbA1c has improved to 5.9 previously 6.6. Continue with metformin, continue to check blood sugars as before he does not follow a diabetic diet, encouraged for carb restricted diet. He has been seeing mapping pilot , diabetic foot care was discussed. Hyperlipidemia lab work was discussed cholesterol triglycerides are all within normal limits HDL is slightly low at 32. Continue atorvastatin 40 mg daily prostate screening, the PSA was within normal limits, patient follows with Dr. Camara, he was on testosterone levels are within normal limits he has an appointment tomorrow and will discuss about stopping testosterone supplements. anxiety and depression PHQ 9 is 0 he does not have any depression he sleeps well. Preventive health care discussed and addressed please see in the separate note. 07/04/2024 Hyperlipidemia, unspecified (ICD-10 - E78.5) Ventura [...] rest of the medications. He is seen mapping pilot in the past 1 year. He is [...] 06/04/2024 Essential (primary) hypertension (ICD-10 - I10) 07/04/2024 Benign prostatic hyperplasia without lower urinary [...] rest of the medications. He is seen mapping pilot in the past 1 year. He is [...] with weight loss. Screening blood work ordered 01/29/2025 Diabetes mellitus due to underlying condition with hyperglycemia (ICD-10 - E08.65) 49 years old pleasant gentleman with DM type II, hypertension, hyperlipidemia, BPH, erectile dysfunction is here today for an annual physical exam plan as following hypertension elevated 160/80, patient has white coat hypertension and his blood pressure usually arises when he comes to the office. He checks blood pressure at home and we discussed all the readings he had most of his blood pressure is 108-122 systolically, diastolic blood pressure ranges around 60-64. EKG was completed today normal sinus rhythm I reviewed the EKG shows heart beat of 86 bpm QTC is 435 no AV blocks no bundle branch block. Diabetes mellitus type , HbA1c has improved to 5.9 previously 6.6. Continue with metformin, continue to check blood sugars as before he does not follow a diabetic diet, encouraged for carb restricted diet. He has been seeing mapping pilot , diabetic foot care was discussed. Hyperlipidemia lab work was discussed cholesterol triglycerides are all within normal limits HDL is slightly low at 32. Continue atorvastatin 40 mg daily prostate screening, the PSA was within normal limits, patient follows with Dr. Camara, he was on testosterone levels are within normal limits he has an appointment tomorrow and will discuss about stopping testosterone supplements. anxiety and depression PHQ 9 is 0 he does not have any depression he sleeps well. Preventive health care discussed and addressed please see in the separate note. 07/04/2024 Decreased libido (ICD-10 - R68.82) Ventura [...] rest of the medications. He is seen mapping pilot in the past 1 year. He is [...] rest of the medications. He is seen mapping pilot in the past 1 year. He is [...] (ICD-10 - Z71.3) Ventura 48 years old bala gentleman with [...] rest of the medications. He is seen mapping pilot in the past 1 year. He is [...] HEMOGLOBIN A1C WITH EST GLUCOSE 01/16/20 20 Glucose Fasting 01/29/2025 Albumin/Creatinine Ratio,Urine-[id number] Comp. Metabolic Panel [id number] 2024 Next Appt Details Provider Name:Dawson Martinez, 0 08/01/2025 08:30:00 AM, [address] [place] [address] [address], [place], [address], Insurance Providers Payer Name Payer Address Payer Phone Subscriber Number Group Number Insured Name Patient Relationship to Insured Coverage Start Date Coverage End Date [facility] [address] [place] [phone] [id number] Ventura Lowe Self - patient is the insured 4 Medical (General) History Medical History History ICD Code Essential (primary) hypertension I10 Fatty liver Class I obesity DM type II Benign prostatic hyperplasia and he sees urologist at [facility] Chronic kidney disease and he sees Dr. Heather Stroud hypertension. 24 h our blood pressure monitoring in 2019 by configurator Surgical History Surgery Date(Month/Year) kidney stones
== END 2025-01-30 09:57 | disposition home or self-care (01) ==
LOC: HO.HUSH 08:41
PROVIDERS: PCP Hospitalist; Visit Provider Urology
DX: N52.9 Male erectile dysfunction, unspecified (principal); N40.1 Benign prostatic hyperplasia with lower urinary tract symptoms; E34.9 Endocrine disorder, unspecified
CPT/HCPCS: 99214; G2211